=== PATIENT | female | born 1980 | race Caucasian/White ===

== ENCOUNTER → 2019-03-16 | Outpatient (CLI) | payer BC ==
--- NOTE | 2019-03-16 14:36 | MM ---
Reason for exam: screening (asymptomatic). Baseline mammogram. History: Family history of breast cancer in maternal grandmother at age 57, breast cancer in aunt at age 53, and breast cancer in maternal aunt at age 58. Physical Findings: Nurse did not find any significant physical abnormalities on exam. MG 3D Screening Mammo W/Cad Bilateral CC and MLO view(s) were taken. There are scattered fibroglandular densities. Tiny asymmetric stellate density upper left MLO veiw 9cm from nipple. Additional views recommended. These results were verbally communicated with the patient and result sheet given to the patient on 03/16/19. ASSESSMENT: Incomplete: need additional imaging evaluation, BI-RAD 0 RECOMMENDATION: Special view mammogram of the left breast.
--- NOTE | 2019-03-16 14:37 | MM ---
Reason for exam: additional evaluation requested from abnormal screening. History: Family history of breast cancer in maternal grandmother at age 57, breast cancer in aunt at age 53, and breast cancer in maternal aunt at age 58. Physical Findings: Breast exam preformed at baseline screening. MG 3D Work Up W/Cad LT LM and spot compression MLO view(s) were taken of the left breast. There are scattered fibroglandular densities. The previously seen abnormality resolves on additional views and appears as fibroglandular tissue compatible with summation. No suspicious abnormality. These results were verbally communicated with the patient and result sheet given to the patient on 03/16/19. ASSESSMENT: Negative, BI-RAD 1 RECOMMENDATION: Return to routine screening mammogram schedule for both breasts.
== END | disposition home or self-care (01) ==
LOC: RADMAMWWP 12:57
PROVIDERS: ATTEND Pediatrics
DX: Z12.31 Encounter for screening mammogram for malignant neoplasm of breast (principal); R92.8 Other abnormal and inconclusive findings on diagnostic imaging of breast
CPT/HCPCS: 77061; 77063; 77065; 77067

== ENCOUNTER 2019-05-12 09:46 | Inpatient (IN) | payer BC ==
[2019-05-12] MEDS ORDERED: ONDANSETRON 4 MG/2 ML VIAL IVP STA (10:00)
[2019-05-12] MEDS ORDERED: SODIUM CHLORIDE 0.9% 500 ML 500 ML IV STA (10:00)
[2019-05-12] MEDS ORDERED: HYDROmorphone 0.5 MG/0.5 ML SYRINGE IVP STA ×2 (10:01→12:55)
--- NOTE | 2019-05-12 10:05 | ED ---
General Adult HPI - General Chief complaint: Abdominal Pain Stated complaint: abd pain, nausea Time Seen by Provider: 05/12/19 09:50 Source: patient, RN notes reviewed, old records reviewed Mode of arrival: wheelchair Limitations: no limitations - History of Present Illness Initial comments: This is a 38-year-old female who presents emergency Department complaining that she has right upper quadrant epigastric abdominal pain since Thursday. Patient states she went to [facility] on Thursday they did a CAT scan of her abdomen and pelvis showed gallstones and to follow up. Patient states pain is getting worse and she continues to have nausea and vomiting so she decided come to the emergency department. Patient denies any chest pain difficulty breathing shortness of breath. Patient denies any back pain. Patient denies any fever chills or cough. Patient denies any diarrhea. - Related Data Home Medications Medication Instructions Recorded Confirmed HYDROcodone/APAP 5-325MG [[place] 1 tab PO Q6H PRN 05/12/19 05/12/19 5-325] Ondansetron Odt [Zofran Odt] 8 mg PO Q8HR PRN 05/12/19 05/12/19 buPROPion HCL [Wellbutrin SR] 150 mg PO Q12H 05/12/19 05/12/19 Allergies Allergy/AdvReac Type Severity Reaction Status Date / Time No Known Allergies Allergy Verified 05/12/19 10:28 Review of Systems ROS Statement: Those systems with pertinent positive or pertinent negative responses have been documented in the HPI. ROS Other: All systems not noted in ROS Statement are negative. Past Medical History Past Medical History: No Reported History History of Any Multi-Drug Resistant Organisms: None Reported Past Surgical History: Tubal Ligation Past Psychological History: Depression Smoking Status: Former smoker Past Alcohol Use History: None Reported Past Drug Use History: None Reported General Exam - General Exam Comments Initial Comments: GENERAL: Patient is well-developed and well-nourished. Patient is nontoxic and well- hydrated and is in mild distress. ENT: Neck is soft and supple. No significant lymphadenopathy is noted. Oropharynx is clear. Moist mucous membranes. Neck has full range of motion without eliciting any pain. EYES: The sclera were anicteric and conjunctiva were pink and moist. Extraocular movements were intact and pupils were equal round and reactive to light. Eyelids were unremarkable. PULMONARY: Unlabored respirations. Good breath sounds bilaterally. No audible rales rhonchi or wheezing was noted. CARDIOVASCULAR: There is a regular rate and rhythm without any murmurs gallops or rubs. ABDOMEN: Patient has mild right upper quadrant abdominal tenderness SKIN: Skin is clear with no lesions or rashes and otherwise unremarkable. NEUROLOGIC: Patient is alert and oriented x3. Cranial nerves II through XII are grossly intact. Motor and sensory are also intact. Normal speech, volume and content. Symmetrical smile. MUSCULOSKELETAL: Normal extremities with adequate strength and full range of motion. No lower extremity swelling or edema. No calf tenderness. LYMPHATICS: No significant lymphadenopathy is noted PSYCHIATRIC: Normal psychiatric evaluation. Limitations: no limitations Course Vital Signs 05/12/19 09:51 Temperature 97.4 F L Pulse Rate 80 Respiratory 18 Rate Blood Pressure 131/82 O2 Sat by Pulse 98 Oximetry Medical Decision Making - Medical Decision Making Patient's ultrasound showed gallstones. There is no obvious signs of cholecystitis. - Lab Data Result diagrams: 05/12/19 10:20 05/12/19 10:20 Lab Results 05/12/19 05/12/19 05/12/19 Range/Units 10:20 10:20 10:20 WBC 10.9 H (3.8-10.6) k/uL RBC 5.14 (3.80-5.40) m/uL Hgb 15.5 (11.4-16.0) gm/dL Hct 46.1 H (34.0-46.0) % MCV 89.7 (80.0-100.0) fL MCH 30.1 (25.0-35.0) pg MCHC 33.6 (31.0-37.0) g/dL RDW 13.4 (11.5-15.5) % Plt Count 213 (150-450) k/uL Neutrophils % 88 % Lymphocytes % 7 % Monocytes % 2 % Eosinophils % 2 % Basophils % 0 % Neutrophils # 9.5 H (1.3-7.7) k/uL Lymphocytes # 0.8 L (1.0-4.8) k/uL Monocytes # 0.3 (0-1.0) k/uL Eosinophils # 0.2 (0-0.7) k/uL Basophils # 0.0 (0-0.2) k/uL Sodium 138 (137-145) mmol/L Potassium 4.7 (3.5-5.1) mmol/L Chloride 108 H (98-107) mmol/L Carbon Dioxide 17 L (22-30) mmol/L Anion Gap 13 mmol/L BUN 10 (7-17) mg/dL Creatinine 0.66 (0.52-1.04) mg/dL Est GFR (CKD-EPI)AfAm >90 (>60 ml/min/1.73 sqM) Est GFR (CKD-EPI)NonAf >90 (>60 ml/min/1.73 sqM) Glucose 175 H (74-99) mg/dL Calcium 9.2 (8.4-10.2) mg/dL Total Bilirubin 4.1 H (0.2-1.3) mg/dL AST 713 H (14-36) U/L ALT 991 H (4-34) U/L Alkaline Phosphatase 167 H (38-126) U/L Total Protein 8.1 (6.3-8.2) g/dL Albumin 4.5 (3.5-5.0) g/dL Urine Color Dark Yellow Urine Appearance Cloudy H (Clear) Urine pH 5.0 (5.0-8.0) Ur Specific [place] 1.012 (1.001-1.035) Urine Protein 1+ H (Negative) Urine Glucose (UA) Negative (Negative) Urine Ketones 1+ H (Negative) Urine Blood Negative (Negative) Urine Nitrite Negative (Negative) Urine Bilirubin 2+ H (Negative) Urine Urobilinogen 2.0 (<2.0) mg/dL Ur Leukocyte Esterase Negative (Negative) Urine RBC 2 (0-5) /hpf Urine WBC 1 (0-5) /hpf Ur Squamous Epith Cells 3 (0-4) /hpf Urine Bacteria Occasional H (None) /hpf Urine Mucus Rare H (None) /hpf Disposition Clinical Impression: Hepatitis, Abdominal pain Disposition: ADMITTED IP TO THIS HOSP Referrals: Mario Redmond MD [Primary Care Provider] - 1-2 days Time of Disposition: 11:10
[2019-05-12 10:32] LABS: Basophils % (A) 0 %; Eosinophils # (A) 0.2 k/uL (0-0.7); Eosinophils % (A) 2 %; HCT 46.1 % (34.0-46.0); HGB 15.5 gm/dL (11.4-16.0); Lymphocytes # (A) 0.8 k/uL (1.0-4.8); Lymphocytes % (A) 7 %; MCH 30.1 pg (25.0-35.0); MCHC 33.6 g/dL (31.0-37.0); MCV 89.7 fL (80.0-100.0); Mean Platelet Volume 9.4; Monocytes # (A) 0.3 k/uL (0-1.0); Monocytes % (A) 2 %; Neutrophils # (A) 9.5 k/uL (1.3-7.7); Neutrophils % (A) 88 %; Platelet Count 213 k/uL (150-450); RBC 5.14 m/uL (3.80-5.40); RDW 13.4 % (11.5-15.5); WBC 10.9 k/uL (3.8-10.6)
[2019-05-12 10:42] LABS: AST 713 U/L (14-36); African American GFR (CKD) >90 (>60 ml/min/1.73 sqM); Albumin 4.5 g/dL (3.5-5.0); Alkaline Phosphatase 167 U/L (38-126); Anion Gap 13 mmol/L; Blood Urea Nitrogen 10 mg/dL (7-17); Calcium 9.2 mg/dL (8.4-10.2); Carbon Dioxide 17 mmol/L (22-30); Chloride 108 mmol/L (98-107); Glucose 175 mg/dL (74-99); Non-African American GFR(CKD) >90 (>60 ml/min/1.73 sqM); Sodium 138 mmol/L (137-145); Total Bilirubin 4.1 mg/dL (0.2-1.3); Total Protein 8.1 g/dL (6.3-8.2)
[2019-05-12 10:50] LABS: ALT 991 U/L (4-34)
[2019-05-12 10:52] LABS: Appearance,Urine Cloudy (Clear); Bacteria,Urine Occasional /hpf; Bilirubin,Urine 2+ (Negative); Blood,Urine Negative (Negative); Color,Urine Dark Yellow; Glucose,Urine (UA) Negative (Negative); Ketones,Urine 1+ (Negative); Leukocyte Esterase,Urine Negative (Negative); Mucus,Urine Rare /hpf; Nitrite,Urine Negative (Negative); Protein,Urine 1+ (Negative); RBC,Urine 2 /hpf (0-5); Specific Gravity,Urine 1.012 (1.001-1.035); Squamous Epithelial Cell,Urine 3 /hpf (0-4); WBC,Urine 1 /hpf (0-5)
[2019-05-12 10:58] LABS: Potassium 4.7 mmol/L (3.5-5.1)
--- NOTE | 2019-05-12 11:05 | US ---
EXAMINATION TYPE: US gallbladder DATE OF EXAM: 05/12/2019 COMPARISON: NONE CLINICAL HISTORY: Right upper quadrant abdominal pain . Patient is not NPO. RUQ/epigastric pain. EXAM MEASUREMENTS: Liver Length: 18.3 cm Gallbladder Wall: 0.2 cm CBD: 0.6 cm Right Kidney: 10.8 x 4.6 x 3.9 cm Pancreas: Tail obscured by overlying bowel gas. Main pancreatic duct- 1.9 mm. Liver: Increased attenuation, decreased visualization of vessels suggestive of fatty infiltrate. Thi s limits evaluation for hepatic masses. Appears enlarged in size. Appears echogenic and coarse. Gallbladder: Multiple mobile stones, largest - 2.0 x 2.1 cm Evidence for sonographic Grayson's sign: neg CBD: wnl Right Kidney: No hydronephrosis or masses seen IMPRESSION: 1. Cholelithiasis without sonographic evidence of acute cholecystitis. 2. Coarsened echotexture of the liver and hepatomegaly. Findings could be on the basis of hepatocellu lar disease or hepatic steatosis. Correlate with liver function tests.
[2019-05-12] MEDS ORDERED: SODIUM CHLORIDE 0.9% 1,000 ML IV ONE (11:12)
[2019-05-12] MEDS ORDERED: ONDANSETRON 4 MG/2 ML VIAL IVP PRN (11:13)
[2019-05-12 12:17] LABS: Amylase 4835 U/L (30-110)
[2019-05-12] MEDS ORDERED: buPROPion SR 150 MG TABLET.ER PO SCH (13:00)
--- NOTE | 2019-05-12 17:11 | CONS ---
CONSULTATION DATE OF SERVICE: 05/12/2019 REASON FOR CONSULTATION: Acute gallstone pancreatitis. HISTORY OF PRESENT ILLNESS: The patient is a 38-year-old white female who came to the emergency room complaining of severe epigastric and right upper quadrant abdominal pain that started 2 days ago. The pain continued to progressively get worse. She went to the emergency room at [facility] two days ago and she had a CAT scan of the abdomen and pelvis and it showed gallstones and she was advised to follow up with her PCP. In the meantime, the pain continued to progressively get worse and hence came to the emergency room and was noted to have elevated lipase and amylase consistent with acute gallstone pancreatitis. She also noted to elevated LFTs and jaundice. She continues to have persistent pain today, nausea has been intense, but no further episodes of emesis. She denies any fever, chills, or night sweats. She never had these symptoms in the past. PAST MEDICAL HISTORY: Significant for anxiety, depression. MEDICATIONS: At home include Wellbutrin, Zofran. ALLERGIES: CODEINE. SOCIAL HISTORY: No smoking, a former smoker. No alcohol use. PAST SURGICAL HISTORY: Tubal ligation. REVIEW OF SYSTEMS: CARDIOPULMONARY: No chest pain, shortness of breath. GENITOURINARY: No dysuria or hematuria. MUSCULOSKELETAL: Unremarkable. SKIN: Unremarkable. ENDOCRINE: Unremarkable. PSYCHIATRIC: Unremarkable. NEUROLOGY: Unremarkable. ENT/VISION: Unremarkable. CONSTITUTIONAL: No fever, chills, or night sweats. On physical examination, blood pressure is 159/111, temperature 97.9, pulse rate 75. HEENT: Examination unremarkable, conjunctivae are pink, sclerae nonicteric, oral cavity no lesion. NECK: No JVD or lymph node enlargement. CHEST: Clear to auscultation. HEART: Regular rate and rhythm. ABDOMEN: Soft. There was severe tenderness in the epigastric area. Rest of the abdomen was benign. Bowel sounds are positive. No organomegaly. EXTREMITIES: No pedal edema. SKIN: No rashes. NEUROLOGIC: Alert and oriented x3. No focal deficits. LABS: WBC 10.9, hemoglobin 15.5, platelets normal. Basic metabolic panel is within normal limits. BUN and creatinine normal. Amylase 4835, lipase more than 20,000, T-bilirubin 4.1, AST 713, ALT 991, and alkaline phosphatase 169. Ultrasound of the abdomen did show evidence of multiple gallstones but no evidence of biliary ductal dilation. CBD measures 6.3 mm in diameter. Also, there is evidence of mild fatty liver noted. IMPRESSION: This lady presented to the hospital with acute onset of severe epigastric pain associated with nausea, vomiting for the last 2 days duration and noted to have elevated amylase and lipase, elevated LFTs, all consistent with acute gallstone pancreatitis with possible choledocholithiasis. Ultrasound did show evidence of gallstones but no biliary ductal dilation. RECOMMENDATIONS: 1. Aggressive IV hydration. 2. Keep her n.p.o. except ice chips. 3. Antiemetics as needed. 4. Repeat labs in the morning. 5. If serum transaminases and bilirubin continue to increase, will consider ERCP. 6. Obtain surgical consultation for possible cholecystectomy in the near future. 7. Will follow with you closely. Thank you for this consultation. THEEL / IJN: [id number] /
[2019-05-12] MEDS: HYDROmorphone 0.5 MG/0.5 ML SYRINGE IVP PRN ×2 (18:23→22:24)
[2019-05-12] MEDS: ONDANSETRON 4 MG/2 ML VIAL IVP SCH ×2 (18:31→23:30)
[2019-05-12 20:20] LABS: Hepatitis A Antibody IgM Non-Reactive (Non-Reactive); Hepatitis B Core IgM Non-Reactive (Non-Reactive); Hepatitis B Surface Antigen Non-Reactive (Non-Reactive); Hepatitis C IgG Antibody Non-Reactive (Non-Reactive)
[2019-05-12] MEDS: buPROPion SR 150 MG TABLET.ER PO SCH (20:23)
--- NOTE | 2019-05-12 21:59 | P.HPIM ---
History of Present Illness H&P Date: 05/12/19 Chief Complaint: Abdominal pain Patient is a 38-year-old female without significant past medical history came to ER with complaints of abdominal pain mainly in the epigastric and across the upper abdomen and radiating to the back sometimes. Patient has been having pain since last Thursday. Patient initially went to [facility] where she had CT of the abdominal pelvis and was told that she has gallstones and recommended to follow with her PCP and surgery as an outpatient. Patient has been having worsening abdominal pain which made her to come to ER this time. Does have nausea and vomiting at home. No fever no chills. Patient also noticed dark discoloration of her urine. No commerce of chest pain or shortness of breath. Denied any cough or sputum production. No diarrhea. No prior history of gallstones. Denied any recent travel. No sick contacts at home. Denied any unusual food intake. No history of prior hepatitis. Ultrasound of the abdomen showed cholelithiasis without evidence of acute cholecystitis. AST 731, ALT 991, alk phos 167, bilirubin 4.1, amylase 4835 and lipase greater than 30,000 WBC 10.9. UA negative for infection. Hepatitis panel negative. Heterophile antibody negative. Review of Systems Constitutional: Patient denies any fever or chills . No generalized weakness or weight loss. Abdomen: Patient does have nausea vomiting and abdominal pain.. Cardiovascular: Patient denies any chest pain or short of breath no palpitations. Respiratory: patient denied any cough is from production. No shortness of breath Neurologic: Patient denied any numbness or tingling headache. Musculoskeletal: Patient denies any complaints of joint swelling or deformity. Skin: Negative Psychiatric: Negative Endocrine: No heat or cold intolerance. No recent weight gain. Genitourinary: No dysuria or hematuria. All other 14 point ROS negative except the above Past Medical History Past Medical History: Eye Disorder Additional Past Medical History / Comment(s): Bronchitis, hiatal hernia, UTI, starting of cataracts bilaterally History of Any Multi-Drug Resistant Organisms: None Reported Past Surgical History: Section, Tubal Ligation Past Anesthesia/Blood Transfusion Reactions: No Reported Reaction Smoking Status: Former smoker - Past Family History Father Family Medical History: Diabetes Mellitus, Hypertension Mother Family Medical History: Diabetes Mellitus, Hypertension Medications and Allergies Home Medications Medication Instructions Recorded Confirmed Type HYDROcodone/APAP 5-325MG [[place] 1 tab PO Q6H PRN 05/12/19 05/12/19 History 5-325] Ondansetron Odt [Zofran Odt] 8 mg PO Q8HR PRN 05/12/19 05/12/19 History buPROPion HCL [Wellbutrin SR] 150 mg PO Q12H 05/12/19 05/12/19 History Allergies Allergy/AdvReac Type Severity Reaction Status Date / Time No Known Allergies Allergy Verified 05/12/19 10:28 Physical Exam Vitals: Vital Signs Temp Pulse Resp BP Pulse Ox 05/12/19 11:39 97.8 F 81 18 133/91 97 05/12/19 09:51 97.4 F L 80 18 131/82 98 Intake and Output 05/11/19 05/12/19 05/12/19 22:59 06:59 14:59 Other: Weight 117.027 kg PHYSICAL EXAMINATION: Patient is lying in the bed comfortably, no acute distress, awake alert and oriented.. HEENT: Normocephalic. Neck is supple. Pupils reactive. Mild icterus positive. Nostrils clear. Oral cavity is moist. Ears reveal no drainage. Neck reveals no JVD, carotid bruits, or thyromegaly. CHEST EXAMINATION: Trachea is central. Symmetrical expansion. Lung frazier clear to auscultation and percussion. CARDIAC: Normal S1, S2 with no gallops. No murmurs ABDOMEN: Soft. Epigastric tenderness. Bowel sounds normal. No organomegaly. No abdominal bruits. Extremities: reveal no edema. No clubbing or cyanosis Neurologically awake, alert, oriented x3 with well-coordinated movements. No focal deficits noted Skin: No rash or skin lesions. Psychiatric: Coperative. Nonsuicidal Musculoskeletal: No joint swelling or deformity. Normal range of motion. Results CBC & Chem 7: 05/12/19 10:20 05/12/19 10:20 Labs: Abnormal Lab Results - Last 24 Hours (Table) 05/12/19 05/12/19 05/12/19 Range/Units 10:20 10:20 10:20 WBC 10.9 H (3.8-10.6) k/uL Hct 46.1 H (34.0-46.0) % Neutrophils # 9.5 H (1.3-7.7) k/uL Lymphocytes # 0.8 L (1.0-4.8) k/uL Chloride 108 H (98-107) mmol/L Carbon Dioxide 17 L (22-30) mmol/L Glucose 175 H (74-99) mg/dL Total Bilirubin 4.1 H (0.2-1.3) mg/dL AST 713 H (14-36) U/L ALT 991 H (4-34) U/L Alkaline Phosphatase 167 H (38-126) U/L Amylase 4835 H* (30-110) U/L Lipase >61925 H (23-300) U/L Urine Appearance Cloudy H (Clear) Urine Protein 1+ H (Negative) Urine Ketones 1+ H (Negative) Urine Bilirubin 2+ H (Negative) Urine Bacteria Occasional H (None) /hpf Urine Mucus Rare H (None) /hpf Thrombosis Risk Factor Assmnt - DVT/VTE Prophylaxis DVT/VTE Prophylaxis: Pharmacologic Prophylaxis ordered - Choose All That Apply Any of the Below Risk Factors Present?: Yes Each Factor Represents 1 point: Obesity (BMI >25) Other Risk Factors: No Other congenital or acquired thrombophilia - If yes, enter type in comment: No Thrombosis Risk Factor Assessment Total Risk Factor Score: 1 Thrombosis Risk Factor Assessment Level: Low Risk Assessment and Plan Assessment: Acute gallstone pancreatitis possible choledocholithiasis Elevated liver enzymes Hyperbilirubinemia Recent diagnosis of gallstones Hiatal hernia Previous history of smoking DVT prophylaxis Morbid obesity with BMI 42.9 Hepatic steatosis Plan: Patient will be continued on IV hydration and IV pain medications. Nothing by mouth. Follow-up liver enzymes. Gastroenterology is following. Possible ERCP if the enzymes continues to increase. Further recommendations based on the clinical course. Time with Patient: Greater than 30
[2019-05-12] MEDS ORDERED: PANTOPRAZOLE 40 MG/10 ML VIAL IVP SCH (22:00)
[2019-05-12] MEDS: SIMETHICONE 80 MG CHEWABLE PO PRN (22:24)
[2019-05-12] MEDS: SODIUM CHLORIDE 0.9% 1,000 ML IV SCH (22:26)
[2019-05-12] MEDS: MEROPENEM 2 GM in SODIUM CHLORIDE 0.9% 100 ML IVPB SCH (23:30)
[2019-05-13] MEDS: HYDROmorphone 0.5 MG/0.5 ML SYRINGE IVP PRN ×6 (02:26→22:09)
[2019-05-13] MEDS: ONDANSETRON 4 MG/2 ML VIAL IVP SCH ×3 (05:51→18:14)
[2019-05-13] MEDS: SODIUM CHLORIDE 0.9% 1,000 ML IV SCH ×3 (05:51→22:08)
[2019-05-13] MEDS: SIMETHICONE 80 MG CHEWABLE PO PRN ×2 (06:15→14:37)
[2019-05-13 06:49] LABS: Basophils % (A) 0 %; Eosinophils % (A) 0 %; HCT 43.4 % (34.0-46.0); HGB 13.9 gm/dL (11.4-16.0); Lymphocytes # (A) 0.9 k/uL (1.0-4.8); Lymphocytes % (A) 7 %; MCH 29.1 pg (25.0-35.0); MCHC 32.1 g/dL (31.0-37.0); MCV 90.6 fL (80.0-100.0); Mean Platelet Volume 9.5; Monocytes # (A) 0.5 k/uL (0-1.0); Monocytes % (A) 4 %; Neutrophils # (A) 10.9 k/uL (1.3-7.7); Neutrophils % (A) 88 %; Platelet Count 162 k/uL (150-450); RBC 4.79 m/uL (3.80-5.40); RDW 13.6 % (11.5-15.5); WBC 12.3 k/uL (3.8-10.6)
[2019-05-13 06:58] LABS: ALT 601 U/L (4-34); AST 215 U/L (14-36); African American GFR (CKD) >90 (>60 ml/min/1.73 sqM); Albumin 3.6 g/dL (3.5-5.0); Alkaline Phosphatase 135 U/L (38-126); Anion Gap 8 mmol/L; Blood Urea Nitrogen 9 mg/dL (7-17); Carbon Dioxide 22 mmol/L (22-30); Chloride 107 mmol/L (98-107); Glucose 136 mg/dL (74-99); Non-African American GFR(CKD) >90 (>60 ml/min/1.73 sqM); Potassium 3.7 mmol/L (3.5-5.1); Prothrombin Time 10.4 sec (9.0-12.0); Sodium 137 mmol/L (137-145); Total Bilirubin 1.3 mg/dL (0.2-1.3); Total Protein 6.7 g/dL (6.3-8.2)
--- NOTE | 2019-05-13 07:02 | XR ---
EXAMINATION TYPE: XR chest 1V portable DATE OF EXAM: 05/13/2019 COMPARISON: NONE HISTORY: Shortness of breath rule out COVID TECHNIQUE: Single frontal view of the chest is obtained. FINDINGS: There is infrahilar increased density bilaterally right greater than left which may reflect infiltrat e and/or atelectasis. Correlate clinically. The cardiac silhouette size is within normal limits. The osseous structures are intact. IMPRESSION: 1. There is infrahilar increased density bilaterally right greater than left which may reflect infil trate and/or atelectasis. Correlate clinically.
[2019-05-13 07:12] LABS: Amylase 1427 U/L (30-110)
[2019-05-13] MEDS ORDERED: hydrALAZINE HCL 25 MG TAB PO PRN (07:23)
[2019-05-13] MEDS: MEROPENEM 2 GM in SODIUM CHLORIDE 0.9% 100 ML IVPB SCH ×2 (07:47→16:01)
[2019-05-13] MEDS: PANTOPRAZOLE 40 MG/10 ML VIAL IVP SCH ×2 (07:48→20:14)
[2019-05-13] MEDS: buPROPion SR 150 MG TABLET.ER PO SCH ×2 (07:49→20:14)
[2019-05-13] MEDS: HEPARIN SODIUM,PORCINE 5,000 UNIT/ML 1 ML VIAL SQ SCH ×2 (07:50→16:01)
--- NOTE | 2019-05-13 09:03 | P.GSCN ---
History of Present Illness Consult date: 05/13/19 Reason for Consult: Gallstone pancreatitis History of present illness: 38-year-old female came to the hospital with complaints of epigastric pain that began on Thursday. Pain was midepigastric initially but became more diffuse across the upper abdomen. Patient has had nausea and vomiting however the vomiting has improved. No fevers or chills. Did have some slight discoloration of her urine. Did not notice any yellowness to her skin or eyes. Labs suggested pancreatitis with elevated liver enzymes. Ultrasound showed gallstones without biliary dilation. Pain is persisting but slightly improved. GI has already seen this patient. Today's labs have improved nicely from yesterday. Patient denies shortness of breath or cough. Review of Systems The patient denies any acute changes in vision or hearing, no dysphagia or odynophagia, no chest pain or shortness of breath, no dysuria or hematuria, no headache, no runny nose, no rectal bleeding or melena, no unexplained weight loss Past Medical History Past Medical History: Eye Disorder Additional Past Medical History / Comment(s): Bronchitis, hiatal hernia, UTI, starting of cataracts bilaterally History of Any Multi-Drug Resistant Organisms: None Reported Past Surgical History: Section, Tubal Ligation Past Anesthesia/Blood Transfusion Reactions: No Reported Reaction Smoking Status: Former smoker - Past Family History Father Family Medical History: Diabetes Mellitus, Hypertension Mother Family Medical History: Diabetes Mellitus, Hypertension Medications and Allergies Home Medications Medication Instructions Recorded Confirmed Type HYDROcodone/APAP 5-325MG [[place] 1 tab PO Q6H PRN 05/12/19 05/12/19 History 5-325] Ondansetron Odt [Zofran Odt] 8 mg PO Q8HR PRN 05/12/19 05/12/19 History buPROPion HCL [Wellbutrin SR] 150 mg PO Q12H 05/12/19 05/12/19 History Allergies Allergy/AdvReac Type Severity Reaction Status Date / Time No Known Allergies Allergy Verified 05/12/19 10:28 Surgical - Exam Vital Signs Temp Pulse Resp BP Pulse Ox 97.4 F L 80 18 131/82 98 05/12/19 09:51 05/12/19 09:51 05/12/19 09:51 05/12/19 09:51 05/12/19 09:51 Physical exam: General: Well-developed, well-nourished HEENT: Normocephalic, sclerae nonicteric Abdomen: Epigastric tenderness, nondistended Extremities: No edema Neuro: Alert and oriented Results - Labs 05/13/19 06:16 05/13/19 06:16 Abnormal Lab Results - Last 24 Hours (Table) 05/12/19 05/12/19 05/12/19 Range/Units 10:20 10:20 10:20 WBC 10.9 H (3.8-10.6) k/uL Hct 46.1 H (34.0-46.0) % Neutrophils # 9.5 H (1.3-7.7) k/uL Lymphocytes # 0.8 L (1.0-4.8) k/uL Chloride 108 H (98-107) mmol/L Carbon Dioxide 17 L (22-30) mmol/L Glucose 175 H (74-99) mg/dL Calcium (8.4-10.2) mg/dL Total Bilirubin 4.1 H (0.2-1.3) mg/dL AST 713 H (14-36) U/L ALT 991 H (4-34) U/L Alkaline Phosphatase 167 H (38-126) U/L Amylase 4835 H* (30-110) U/L Lipase >66706 H (23-300) U/L Urine Appearance Cloudy H (Clear) Urine Protein 1+ H (Negative) Urine Ketones 1+ H (Negative) Urine Bilirubin 2+ H (Negative) Urine Bacteria Occasional H (None) /hpf Urine Mucus Rare H (None) /hpf 05/13/19 05/13/19 Range/Units 06:16 06:16 WBC 12.3 H (3.8-10.6) k/uL Hct (34.0-46.0) % Neutrophils # 10.9 H (1.3-7.7) k/uL Lymphocytes # 0.9 L (1.0-4.8) k/uL Chloride (98-107) mmol/L Carbon Dioxide (22-30) mmol/L Glucose 136 H (74-99) mg/dL Calcium 8.0 L (8.4-10.2) mg/dL Total Bilirubin (0.2-1.3) mg/dL AST 215 H (14-36) U/L ALT 601 H (4-34) U/L Alkaline Phosphatase 135 H (38-126) U/L Amylase 1427 H* (30-110) U/L Lipase 7716 H (23-300) U/L Urine Appearance (Clear) Urine Protein (Negative) Urine Ketones (Negative) Urine Bilirubin (Negative) Urine Bacteria (None) /hpf Urine Mucus (None) /hpf Diabetes panel 05/12/19 05/13/19 Range/Units 10:20 06:16 Sodium 138 137 (137-145) mmol/L Potassium 4.7 3.7 (3.5-5.1) mmol/L Chloride 108 H 107 (98-107) mmol/L Carbon Dioxide 17 L 22 (22-30) mmol/L BUN 10 9 (7-17) mg/dL Creatinine 0.66 0.66 (0.52-1.04) mg/dL Glucose 175 H 136 H (74-99) mg/dL Calcium 9.2 8.0 L (8.4-10.2) mg/dL AST 713 H 215 H (14-36) U/L ALT 991 H 601 H (4-34) U/L Alkaline Phosphatase 167 H 135 H (38-126) U/L Total Protein 8.1 6.7 (6.3-8.2) g/dL Albumin 4.5 3.6 (3.5-5.0) g/dL Calcium panel 05/12/19 05/13/19 Range/Units 10:20 06:16 Calcium 9.2 8.0 L (8.4-10.2) mg/dL Albumin 4.5 3.6 (3.5-5.0) g/dL Pituitary panel 05/12/19 05/13/19 Range/Units 10:20 06:16 Sodium 138 137 (137-145) mmol/L Potassium 4.7 3.7 (3.5-5.1) mmol/L Chloride 108 H 107 (98-107) mmol/L Carbon Dioxide 17 L 22 (22-30) mmol/L BUN 10 9 (7-17) mg/dL Creatinine 0.66 0.66 (0.52-1.04) mg/dL Glucose 175 H 136 H (74-99) mg/dL Calcium 9.2 8.0 L (8.4-10.2) mg/dL Adrenal panel 05/12/19 05/13/19 Range/Units 10:20 06:16 Sodium 138 137 (137-145) mmol/L Potassium 4.7 3.7 (3.5-5.1) mmol/L Chloride 108 H 107 (98-107) mmol/L Carbon Dioxide 17 L 22 (22-30) mmol/L BUN 10 9 (7-17) mg/dL Creatinine 0.66 0.66 (0.52-1.04) mg/dL Glucose 175 H 136 H (74-99) mg/dL Calcium 9.2 8.0 L (8.4-10.2) mg/dL Total Bilirubin 4.1 H 1.3 (0.2-1.3) mg/dL AST 713 H 215 H (14-36) U/L ALT 991 H 601 H (4-34) U/L Alkaline Phosphatase 167 H 135 H (38-126) U/L Total Protein 8.1 6.7 (6.3-8.2) g/dL Albumin 4.5 3.6 (3.5-5.0) g/dL Assessment and Plan (1) Gallstone pancreatitis Narrative/Plan: 38-year-old female with history exam and diagnostic studies consistent with acute gallstone pancreatitis. Continue empiric antibiotics. Recheck labs tomorrow. Tentatively plan laparoscopic cholecystectomy, possible open cholecystectomy on 05/14 if the patient's labs continue to demonstrate i mprovement. Risks of bleeding, infection, bile leak, bile duct injury, retained common bile duct stone, trocar injury, conversion to an open procedure, hernia, anesthesia related complications were reviewed. The patient understands and wishes to proceed. Current Visit: Yes Status: Acute Code(s): K85.10 - BILIARY ACUTE PANCREATITIS WITHOUT NECROSIS OR INFECTION SNOMED Code(s): 06216809
[2019-05-13 09:39] VITALS: BMI 42.9
--- NOTE | 2019-05-13 11:16 | PN ---
PROGRESS NOTE DATE OF SERVICE: 05/13/2019 Patient is a 38-year-old pleasant white female admitted to hospital with acute gallstone pancreatitis. She presents with severe epigastric pain and nausea, vomiting. She is feeling better today. Still has persistent epigastric pain, requiring Dilaudid every 3 hours. The nausea has resolved. No diarrhea. No fever, chills, or night sweats. PHYSICAL EXAMINATION: Appears comfortable. Blood pressure is 130/75, pulse rate 95, temperature 99. HEENT: Examination unremarkable, conjunctivae are pink, sclerae nonicteric, oral cavity no lesions. NECK: No JVD or lymph node enlargement. CHEST: Clear to auscultation. HEART: Regular rate and rhythm. ABDOMEN: Soft, there was tenderness in the epigastric area but no rebound or rigidity. Bowel sounds are positive. No organomegaly. EXTREMITIES: No pedal edema. SKIN: No rashes. NEUROLOGIC: Alert and oriented x3. No focal deficits. LABS: From today, WBC 12.3, hemoglobin 13.9, platelets normal. Basic metabolic panel is within normal limits. BUN and creatinine normal. T-bilirubin is down to 1.3 from 4.1 yesterday. AST is down to 160, ALT is down to 601, alkaline phosphatase 135, amylase is 1427, lipase is down to 7716. Hepatitis serologies for A, B and C are negative. IMPRESSION: Acute gallstone pancreatitis with elevated LFTs and jaundice, gradually improving. Symptoms are improving, biochemical parameatal is improving. Bilirubin has decreased from 4.1 to 1.3, making it likely that she has already passed the CBD stone spontaneously. RECOMMENDATIONS: 1. Continue with symptomatic and supportive care. 2. Pain medications as needed. 3. Antiemetics as needed. 4. Okay for ice chips and water. 5. Repeat labs in the morning. 6. If they continue to improve, she will not need an ERCP. Will follow with you closely. Thank you for this consultation. MMODL / IJN: [id number] /
--- NOTE | 2019-05-13 14:54 | P.PN ---
Subjective Progress Note Date: 05/13/19 Principal diagnosis: Patient is a 38-year-old female without significant past medical history came to ER with complaints of abdominal pain mainly in the epigastric and across the u pper abdomen and radiating to the back sometimes. Patient has been having pain since last Thursday. Patient initially went to [facility] where she had CT of the abdominal pelvis and was told that she has gallstones and recommended to follow with her PCP and surgery as an outpatient. Patient has been having worsening abdominal pain which made her to come to ER this time. Does have nausea and vomiting at home. No fever no chills. Patient also noticed dark discoloration of her urine. No commerce of chest pain or shortness of breath. Denied any cough or sputum production. No diarrhea. No prior history of gallstones. Denied any recent travel. No sick contacts at home. Denied any unusual food intake. No history of prior hepatitis. Ultrasound of the abdomen showed cholelithiasis without evidence of acute cholecystitis. 05/13/2019 Patient is seen and evaluated in follow-up today stating she was having some shortness of breath when she was experiencing extreme amounts of pain and a chest x-ray was done showing possible infiltrate and/or atelectasis. Patient states that has resolved now. No reports of chest pain or palpitations. Patient is afebrile. No reports of nausea or vomiting and patient has been advanced to ice chip with small sips of water. Surgery and GI following. Amylase and lipase trending down. Amylase is now 1427 and lipase is 7716. Patient was seen and evaluated by Dr. Walters today and patient may possibly undergo cholecystectomy in the near future. Will continue to monitor closely. Objective - Vital Signs Vital signs: Vital Signs Temp 99.0 F 05/13/19 04:52 Pulse 95 05/13/19 04:52 Resp 20 05/13/19 04:52 BP 113/75 05/13/19 04:52 Pulse Ox 95 05/13/19 04:52 Intake & Output 05/12/19 05/13/19 05/13/19 18:59 06:59 18:59 Intake Total 0 Balance 0 Weight 117.027 kg 117.027 kg Intake: Oral 0 Other: Voiding Method Toilet Toilet Toilet # Voids 1 3 1 - Exam Patient is lying in the bed comfortably, no acute distress, awake alert and oriented.. HEENT: Normocephalic. Neck is supple. Pupils reactive. Mild icterus positive. Nostrils clear. Oral cavity is moist. Ears reveal no drainage. Neck reveals no JVD, carotid bruits, or thyromegaly. CHEST EXAMINATION: Trachea is central. Symmetrical expansion. Lung frazier clear to auscultation and percussion. CARDIAC: Normal S1, S2 with no gallops. No murmurs ABDOMEN: Soft. Epigastric tenderness. Bowel sounds normal. No organomegaly. No abdominal bruits. Extremities: reveal no edema. No clubbing or cyanosis Neurologically awake, alert, oriented x3 with well-coordinated movements. No focal deficits noted Skin: No rash or skin lesions. Psychiatric: Cooperative. Non-suicidal Musculoskeletal: No joint swelling or deformity. Normal range of motion. - Labs CBC & Chem 7: 05/13/19 06:16 05/13/19 06:16 Labs: Abnormal Lab Results - Last 24 Hours (Table) 05/12/19 05/13/19 05/13/19 Range/Units 10:20 06:16 06:16 WBC 12.3 H (3.8-10.6) k/uL Neutrophils # 10.9 H (1.3-7.7) k/uL Lymphocytes # 0.9 L (1.0-4.8) k/uL Glucose 136 H (74-99) mg/dL Calcium 8.0 L (8.4-10.2) mg/dL AST 215 H (14-36) U/L ALT 601 H (4-34) U/L Alkaline Phosphatase 135 H (38-126) U/L Amylase 4835 H* 1427 H* (30-110) U/L Lipase >24313 H 7716 H (23-300) U/L Assessment and Plan Assessment: Acute gallstone pancreatitis possible choledocholithiasis Elevated liver enzymes Hyperbilirubinemia Recent diagnosis of gallstones Hiatal hernia Previous history of smoking DVT prophylaxis Morbid obesity with BMI 42.9 Hepatic steatosis Plan: Patient will be continued on IV hydration and IV pain medications. Diet has been advanced to ice chips and sips of water. Liver enzymes trending down along with lipase and amylase. Gastroenterology is following. Surgery evaluated the patient and patient may undergo cholecystectomy in the near future. Further recommendations based on the clinical course.
[2019-05-14] MEDS: MEROPENEM 2 GM in SODIUM CHLORIDE 0.9% 100 ML IVPB SCH ×4 (00:44→23:20)
[2019-05-14] MEDS: ONDANSETRON 4 MG/2 ML VIAL IVP SCH ×4 (00:44→17:15)
[2019-05-14] MEDS: HEPARIN SODIUM,PORCINE 5,000 UNIT/ML 1 ML VIAL SQ SCH ×3 (00:44→15:37)
[2019-05-14] MEDS: HYDROmorphone 0.5 MG/0.5 ML SYRINGE IVP PRN ×6 (02:01→23:01)
[2019-05-14] MEDS: SODIUM CHLORIDE 0.9% 1,000 ML IV SCH ×3 (05:44→21:40)
[2019-05-14] MEDS: PANTOPRAZOLE 40 MG/10 ML VIAL IVP SCH ×2 (07:56→21:34)
[2019-05-14] MEDS: buPROPion SR 150 MG TABLET.ER PO SCH ×2 (07:57→21:26)
[2019-05-14 08:41] LABS: ALT 280 U/L (4-34); AST 64 U/L (14-36); African American GFR (CKD) >90 (>60 ml/min/1.73 sqM); Albumin 2.8 g/dL (3.5-5.0); Alkaline Phosphatase 87 U/L (38-126); Anion Gap 9 mmol/L; Blood Urea Nitrogen 6 mg/dL (7-17); Carbon Dioxide 19 mmol/L (22-30); Chloride 106 mmol/L (98-107); Glucose 110 mg/dL (74-99); Non-African American GFR(CKD) >90 (>60 ml/min/1.73 sqM); Potassium 3.4 mmol/L (3.5-5.1); Sodium 134 mmol/L (137-145); Total Bilirubin 0.9 mg/dL (0.2-1.3); Total Protein 5.6 g/dL (6.3-8.2)
[2019-05-14 13:19] LABS: Amylase 346 U/L (30-110)
[2019-05-14] MEDS ORDERED: Potassium Replacement Protocol 1 EACH MISC MISCELLANE PRN (13:34)
--- NOTE | 2019-05-14 13:35 | PN ---
PROGRESS NOTE DATE OF DICTATION: 05/14/2019 The patient is a 38-year-old pleasant white female admitted to the hospital with acute gallstone pancreatitis. She is feeling much better today. She has some epigastric discomfort. Overall she is doing well. Nausea and vomiting have resolved. PHYSICAL EXAMINATION: Vital signs are stable. Blood pressure 124/74, pulse rate 98, temperature 98.2. HEENT examination unremarkable. Conjunctivae pink. Sclerae anicteric. Oral cavity no lesions. NECK: No JVD or lymph node enlargement. CHEST: Clear to auscultation. HEART: Regular rate and rhythm. ABDOMEN: Soft. Mild tenderness in the epigastric area. Rest of the abdomen was benign. Bowel sounds are positive. No organomegaly. EXTREMITIES: No pedal edema. SKIN: No rashes. NEUROLOGIC: Alert and oriented x3. No focal deficits. LABS: Labs from today: amylase and lipase are pending. T-bilirubin is down to 0.9. AST and ALT are 64 and 280, respectively. CBC not available. IMPRESSION: Acute gallstone pancreatitis with significantly improving labs. Bilirubin has normalized. Serum transaminases are significantly improved, making it likely that she had spontaneously passed the CBD stone. Overall she is doing well. RECOMMENDATIONS: 1. Continue with pain medications as needed. 2. Will start her on a clear liquid diet. 3. Repeat labs in the morning. 4. No need for any endoscopic intervention at the present time, since her serum transaminases have significantly improved. 5. Will follow with you closely. Thank you for this consultation. CHELSEY / JIN: [id number] /
--- NOTE | 2019-05-14 13:36 | P.PN ---
Subjective Progress Note Date: 05/14/19 CHIEF COMPLAINT: Gallstone pancreatitis HISTORY OF PRESENT ILLNESS: The patient is a 38-year-old female admitted secondary to symptomatic cholelithiasis with gallstone pancreatitis. Lipase on admission was over 20,000. Amylase was over 4800. Total bilirubin was 4.1. She reports generalized ache of the epigastrium. She complains of constipation. She is tolerating ice chips. ROS: No reports of nausea and vomiting. No bowel movements. No fevers or chills. No new chest pain. No productive sputum PHYSICAL EXAM: VITAL SIGNS: Reviewed CONSTITUTIONAL: Well developed and in no acute distress. EYES: Conjuctivae without sclera icterus. Extraocular movements grossly intact. HEAD, EARS, NOSE, THROAT: Moist buccal mucosa. Head is atraumatic, normocephalic. Hears conversational speech. No nasal drainage. NECK: Supple. No thyroidomegaly. RESPIRATORY: Non-labored respirations and equal bilateral excursions. CARDIOVASCULAR: Palpable 2+ radial pulses. Regular rate. Regular rhythm. ABDOMEN: No peritonitis. Protuberant. MUSCULOSKELETAL: No gross deformity of the lower extremities noted. No clubbing. No cyanosis. SKIN: Good skin turgor. Well perfused. NEUROLOGIC: Cranial nerves I through XII grossly intact. No focal or lateralizing signs. PSYCH: Appropriate affect. Alert and oriented to person, place and time. CLINICAL LABS: White blood cell count elevated 12,300. AST improved from 713 down to 64. ALT improved from 991 down to 280. Alkaline phosphatase down from 187 down to 87. Bilirubin is down from 4.1-0.9 STUDIES: Ultrasound of the gallbladder independently reviewed demonstrate gallbladder wall less than 2 mm. Large gallstones identified. It is my per gladys interpretation. RADIOLOGY: Ultrasound of the gallbladder report confirms common bile duct within normal limits 0.6 mm ASSESSMENT: 1. Gallstone pancreatitis 2. Morbid obesity, BMI 42.9 PLAN: 1. Monitor LFTs 2. Recommend inpatient cholecystectomy as liver enzymes and pancreatic enzymes improve Objective - Vital Signs Vital signs: Vital Signs Temp 98.2 F 05/14/19 06:07 Pulse 99 05/14/19 08:13 Resp 18 05/14/19 08:13 BP 127/74 05/14/19 08:13 Pulse Ox 97 05/14/19 06:07 Intake & Output 04/04/2805/14/19 05/14/19 18:59 06:59 18:59 Weight 117.027 kg Other: Voiding Method Toilet Toilet # Voids 1 2 # Bowel Movements 0 - Labs CBC & Chem 7: 05/13/19 06:16 05/14/19 07:42 Labs: Abnormal Lab Results - Last 24 Hours (Table) 05/14/19 Range/Units 07:42 Sodium 134 L (137-145) mmol/L Potassium 3.4 L (3.5-5.1) mmol/L Carbon Dioxide 19 L (22-30) mmol/L BUN 6 L (7-17) mg/dL Glucose 110 H (74-99) mg/dL Calcium 7.0 L (8.4-10.2) mg/dL AST 64 H (14-36) U/L ALT 280 H (4-34) U/L Total Protein 5.6 L (6.3-8.2) g/dL Albumin 2.8 L (3.5-5.0) g/dL
[2019-05-14] MEDS: POTASSIUM CHLORIDE ER 20 MEQ TAB.ER PO SCH ×2 (14:10→15:37)
[2019-05-14] MEDS ORDERED: ACETAMINOPHEN TAB 325 MG TAB PO STA (23:17)
--- NOTE | 2019-05-14 23:32 | P.PN ---
Subjective Progress Note Date: 05/14/19 Principal diagnosis: Acute gallstone pancreatitis Patient is a 38-year-old female without significant past medical history came to ER with complaints of abdominal pain mainly in the epigastric and across the upper abdomen and radiating to the back sometimes. Patient has been having pain since last Thursday. Patient initially went to [facility] where she had CT of the abdominal pelvis and was told that she has gallstones and recommended to follow with her PCP and surgery as an outpatient. Patient has been having worsening abdominal pain which made her to come to ER this time. Does have nausea and vomiting at home. No fever no chills. Patient also noticed dark discoloration of her urine. No commerce of chest pain or shortness of breath. Denied any cough or sputum production. No diarrhea. No prior history of gallstones. Denied any recent travel. No sick contacts at home. Denied any unusual food intake. No history of prior hepatitis. Ultrasound of the abdomen showed cholelithiasis without evidence of acute cholecystitis. 05/13/2019 Patient is seen and evaluated in follow-up today stating she was having some shortness of breath when she was experiencing extreme amounts of pain and a chest x-ray was done showing possible infiltrate and/or atelectasis. Patient states that has resolved now. No reports of chest pain or palpitations. Patient is afebrile. No reports of nausea or vomiting and patient has been advanced to ice chip with small sips of water. Surgery and GI following. Amylase and lipase trending down. Amylase is now 1427 and lipase is 7716. Patient was seen and evaluated by Dr. Walters today and patient may possibly under go cholecystectomy in the near future. Will continue to monitor closely. 05/14/2019 Patient is currently lying in the bed comfortably. Abdominal pain did improve. No complaints of fever or chills. LFTs and amylase, lipase levels are much improved. Gastroenterology is following. General surgery is planning for cholecystectomy tomorrow. Patient has been afebrile. No nausea or vomiting. No diarrhea. No chest pain or shortness of breath. Current medications reviewed. Objective - Vital Signs Vital signs: Vital Signs Temp 100.4 F H 05/14/19 21:20 Pulse 95 05/14/19 21:20 Resp 17 05/14/19 21:20 BP 141/74 05/14/19 21:20 Pulse Ox 98 04/04/20 21:20 Intake & Output 05/14/19 05/14/19 05/15/19 06:59 18:59 06:59 Intake Total 240 Balance 240 Intake: Oral 240 Other: Voiding Method Toilet # Voids 2 3 1 # Bowel Movements 0 0 - Exam Patient is lying in the bed comfortably, no acute distress, awake alert and oriented.. HEENT: Normocephalic. Neck is supple. Pupils reactive. Mild icterus positive. Nostrils clear. Oral cavity is moist. Ears reveal no drainage. Neck reveals no JVD, carotid bruits, or thyromegaly. CHEST EXAMINATION: Trachea is central. Symmetrical expansion. Lung frazier clear to auscultation and percussion. CARDIAC: Normal S1, S2 with no gallops. No murmurs ABDOMEN: Soft. Epigastric tenderness. Bowel sounds normal. No organomegaly. No abdominal bruits. Extremities: reveal no edema. No clubbing or cyanosis Neurologically awake, alert, oriented x3 with well-coordinated movements. No focal deficits noted Skin: No rash or skin lesions. Psychiatric: Cooperative. Non-suicidal Musculoskeletal: No joint swelling or deformity. Normal range of motion. - Labs CBC & Chem 7: 05/13/19 06:16 05/14/19 07:42 Labs: Abnormal Lab Results - Last 24 Hours (Table) 05/14/19 05/14/19 Range/Units 07:42 07:42 Sodium 134 L (137-145) mmol/L Potassium 3.4 L (3.5-5.1) mmol/L Carbon Dioxide 19 L (22-30) mmol/L BUN 6 L (7-17) mg/dL Glucose 110 H (74-99) mg/dL Calcium 7.0 L (8.4-10.2) mg/dL AST 64 H (14-36) U/L ALT 280 H (4-34) U/L Total Protein 5.6 L (6.3-8.2) g/dL Albumin 2.8 L (3.5-5.0) g/dL Amylase 346 H* (30-110) U/L Lipase 1192 H (23-300) U/L Assessment and Plan Assessment: Acute gallstone pancreatitis possible choledocholithiasis with passage of stone Elevated liver enzymes Hyperbilirubinemia Recent diagnosis of gallstones Hiatal hernia Previous history of smoking DVT prophylaxis Morbid obesity with BMI 42.9 Hepatic steatosis Plan: Patient will be continued on IV hydration and IV pain medications. Currently on liquid diet. Follow-up liver enzymes. Gastroenterology and general surgery is following. Possible ERCP if the enzymes continues to increase. Liver enzymes and amylase, lipase are trending down. General surgery is planning for cholecystectomy tomorrow. Nothing by mouth up to midnight. Further recommendations based on the clinical course. Time with Patient: Greater than 30
[2019-05-15] MEDS: HEPARIN SODIUM,PORCINE 5,000 UNIT/ML 1 ML VIAL SQ SCH ×4 (00:36→23:09)
[2019-05-15] MEDS: ONDANSETRON 4 MG/2 ML VIAL IVP SCH ×6 (00:36→23:08)
[2019-05-15] MEDS: HYDROmorphone 0.5 MG/0.5 ML SYRINGE IVP PRN ×3 (04:32→20:50)
[2019-05-15] MEDS: SODIUM CHLORIDE 0.9% 1,000 ML IV SCH ×3 (06:13→19:17)
[2019-05-15] MEDS ORDERED: HYDROmorphone 0.5 MG/0.5 ML SYRINGE IVP PRN (07:31)
[2019-05-15] MEDS ORDERED: ROCURONIUM BROMIDE 10 MG/ML 5 ML VIAL IV ONE (07:52)
[2019-05-15] MEDS ORDERED: PROPOFOL 10 MG/ML 20 ML VIAL IV ONE (07:52)
[2019-05-15] MEDS ORDERED: BUPIVACAIN-EPI 0.25%-1:200,000 30 ML VIAL SQ ONE (07:52)
[2019-05-15] MEDS ORDERED: KETOROLAC 30 MG/ML 1 ML VIAL ONE (07:52)
[2019-05-15] MEDS ORDERED: LIDOCAINE 1% INJ 10MG/ML (20 ML MDV) ONE (07:52)
[2019-05-15] MEDS ORDERED: MIDAZOLAM 2 MG/2 ML VIAL ONE (07:52)
[2019-05-15] MEDS ORDERED: SODIUM CHLORIDE 0.9% 1,000 ML IV ONE (07:52)
[2019-05-15] MEDS ORDERED: fentaNYL (PF) 50 MCG/ML 2 ML AMP ONE (07:52)
[2019-05-15] MEDS ORDERED: HYDROmorphone (PF) 1 MG/ML ONE (07:52)
--- NOTE | 2019-05-15 07:54 | P.PN ---
Progress Note - Text Progress Note Date: 05/15/19 Patient seen today in preop. Yesterday's labs continued to demonstrate improvement and suggest the likely passage of the suspected CBD Stone. Patient's pain has been gradually improving. She is afebrile. She is feeling well enough to go home in the near future she states. She has been tolerating her liquid diet. Plan remains to proceed with laparoscopic, possible open cholecystectomy at this time. Possible discharge later today or tomorrow based on her postoperative symptoms. Risks of bleeding, infection, bile leak, bile duct injury, retained common bile duct stone, trocar injury, conversion to an open procedure, hernia, anesthesia related complications were reviewed. The patient understands and wishes to proceed.
[2019-05-15 08:15] LABS: HGB 11.8 gm/dL (11.4-16.0); MCH 29.5 pg (25.0-35.0); MCHC 32.6 g/dL (31.0-37.0); MCV 90.5 fL (80.0-100.0); Mean Platelet Volume 10.2; Platelet Count 116 k/uL (150-450); RBC 3.98 m/uL (3.80-5.40); RDW 13.5 % (11.5-15.5); WBC 13.5 k/uL (3.8-10.6)
[2019-05-15 08:25] LABS: ALT 175 U/L (4-34); AST 35 U/L (14-36); African American GFR (CKD) >90 (>60 ml/min/1.73 sqM); Albumin 2.8 g/dL (3.5-5.0); Alkaline Phosphatase 85 U/L (38-126); Amylase 132 U/L (30-110); Anion Gap 7 mmol/L; Blood Urea Nitrogen 5 mg/dL (7-17); Calcium 7.4 mg/dL (8.4-10.2); Carbon Dioxide 23 mmol/L (22-30); Chloride 105 mmol/L (98-107); Glucose 109 mg/dL (74-99); Non-African American GFR(CKD) >90 (>60 ml/min/1.73 sqM); Potassium 3.4 mmol/L (3.5-5.1); Sodium 135 mmol/L (137-145); Total Bilirubin 0.8 mg/dL (0.2-1.3); Total Protein 5.6 g/dL (6.3-8.2)
--- NOTE | 2019-05-15 09:16 | P.OP ---
Date of Procedure: 05/15/19 Procedure(s) Performed: PREOPERATIVE DIAGNOSIS: Gallstone pancreatitis with acute cholecystitis POSTOPERATIVE DIAGNOSIS: Same PROCEDURE: Laparoscopic cholecystectomy SURGEON: Romeo EBL: Minimal see anesthesia record ANESTHESIA: Gen. COMPLICATIONS: None OPERATIVE PROCEDURE: The patient was brought and placed on the operating room table in the supine position. The patient was placed under general anesthesia at that time. The abdomen was prepped and draped in the usual sterile fashion. A small vertical infraumbilical incision was made. The fascia was grasped with the Kieran forceps. The fascia was retracted anteriorly. The Veress needle was advanced into the peritoneal cavity. The saline drop test was normal. Insufflation took place up to 15 mmHg. A 5 mm optical trocar was advanced and the peritoneal cavity. 2 additional 5 mm trochars were placed in the right upper quadrant under direct visualization. A 12 mm trocar was advanced into the epigastric incision site. The gallbladder was acutely inflamed with edema involving the wall of the gallbladder. There were no overt signs of panc reatitis seen intraperitoneally. The gallbladder was retracted superiorly and laterally. The peritoneum overlying the infundibulum was bluntly dissected. The patient's cystic duct was visualized. The junction between the cystic duct common and hepatic duct was identified. The cystic duct was then divided after placement of 3 12 mm clips on the patient's side and one on the specimen side. The cystic artery was identified and clipped as well. A small vessel was seen along the gallbladder fossa and clipped as well. Insufflation was evacuated using the suction device. The gallbladder was then removed from the liver bed using electrocautery. The gallbladder was then removed from the epigastric trocar site with an Endo Catch bag. The gallbladder fossa was irrigated with saline. There was no evidence of any bleeding or biliary drainage seen. The fascia at the 12 millimeter site was closed using a Gordon-Tristian 0 Vicryl stitch. The trochars were then removed. The skin at all 4 sites was closed using a 4-0 Monocryl stitch. Skin glue was utilized on the incision sites. At the end of this procedure the sponge and needle counts were correct. DISPOSITION: Stable to the recovery room
[2019-05-15] MEDS ORDERED: Potassium Replacement Protocol 1 EACH MISC MISCELLANE PRN (10:40)
[2019-05-15] MEDS: LACTATED RINGERS 1,000 ML IV SCH (10:43)
[2019-05-15] MEDS: PANTOPRAZOLE 40 MG/10 ML VIAL IVP SCH ×2 (10:43→20:44)
[2019-05-15] MEDS: MEROPENEM 2 GM in SODIUM CHLORIDE 0.9% 100 ML IVPB SCH ×3 (10:43→23:08)
[2019-05-15] MEDS: buPROPion SR 150 MG TABLET.ER PO SCH ×2 (10:48→20:43)
[2019-05-15] MEDS: POTASSIUM CHLORIDE ER 20 MEQ TAB.ER PO SCH ×2 (10:48→12:08)
[2019-05-15] MEDS: HYDROcodone/APAP 5-325MG 1 EACH TAB PO PRN (16:08)
[2019-05-16] MEDS: HYDROcodone/APAP 5-325MG 1 EACH TAB PO PRN ×2 (00:32→11:14)
--- NOTE | 2019-05-16 00:51 | P.PN ---
Subjective Progress Note Date: 05/15/19 Principal diagnosis: Acute gallstone pancreatitis Patient is a 38-year-old female without significant past medical history came to ER with complaints of abdominal pain mainly in the epigastric and across the upper abdomen and radiating to the back sometimes. Patient has been having pain since last Thursday. Patient initially went to [facility] where she had CT of the abdominal pelvis and was told that she has gallstones and recommended to follow with her PCP and surgery as an outpatient. Patient has been having worsening abdominal pain which made her to come to ER this time. Does have nausea and vomiting at home. No fever no chills. Patient also noticed dark discoloration of her urine. No commerce of chest pain or shortness of breath. Denied any cough or sputum production. No diarrhea. No prior history of gallstones. Denied any recent travel. No sick contacts at home. Denied any unusual food intake. No history of prior hepatitis. Ultrasound of the abdomen showed cholelithiasis without evidence of acute cholecystitis. 05/13/2019 Patient is seen and evaluated in follow-up today stating she was having some shortness of breath when she was experiencing extreme amounts of pain and a chest x-ray was done showing possible infiltrate and/or atelectasis. Patient states that has resolved now. No reports of chest pain or palpitations. Patient is afebrile. No reports of nausea or vomiting and patient has been advanced to ice chip with small sips of water. Surgery and GI following. Amylase and lipase trending down. Amylase is now 1427 and lipase is 7716. Patient was seen and evaluated by Dr. Walters today and patient may possibly under go cholecystectomy in the near future. Will continue to monitor closely. 05/14/2019 Patient is currently lying in the bed comfortably. Abdominal pain did improve. No complaints of fever or chills. LFTs and amylase, lipase levels are much improved. Gastroenterology is following. General surgery is planning for cholecystectomy tomorrow. Patient has been afebrile. No nausea or vomiting. No diarrhea. No chest pain or shortness of breath. 05/15/2019 Patient is status post laparoscopic cholecystectomy today. Currently denied any complaints of pain. Liver enzymes and amylase lipase much improved from yesterday. Otherwise patient was started on clear liquid diet and advance as tolerated. Pain medications changed to by mouth. Patient has been afebrile otherwise. WBC 13.5. Anticipate discharge in next 24 hours with more clinical improvement. Current medications reviewed. Objective - Vital Signs Vital signs: Vital Signs Temp 100.8 F H 05/15/19 19:50 Pulse 103 H 05/15/19 19:50 Resp 24 05/15/19 19:50 BP 119/72 05/15/19 19:50 Pulse Ox 99 05/15/19 19:50 Intake & Output 05/15/19 05/15/19 05/16/19 06:59 18:59 06:59 Intake Total 1000 Output Total 5 Balance 995 Intake: IV 1000 Output: Estimated Blood Loss 5 Other: Voiding Method Toilet Toilet # Voids 1 3 1 # Bowel Movements 0 - Exam Patient is lying in the bed comfortably, no acute distress, awake alert and oriented.. HEENT: Normocephalic. Neck is supple. Pupils reactive. Mild icterus positive. Nostrils clear. Oral cavity is moist. Ears reveal no drainage. Neck reveals no JVD, carotid bruits, or thyromegaly. CHEST EXAMINATION: Trachea is central. Symmetrical expansion. Lung frazier clear to auscultation and percussion. CARDIAC: Normal S1, S2 with no gallops. No murmurs ABDOMEN: Soft. Nontender. Bowel sounds normal. No organomegaly. No abdominal bruits. Extremities: reveal no edema. No clubbing or cyanosis Neurologically awake, alert, oriented x3 with well-coordinated movements. No focal deficits noted Skin: No rash or skin lesions. Psychiatric: Cooperative. Non-suicidal Musculoskeletal: No joint swelling or deformity. Normal range of motion. - Labs CBC & Chem 7: 05/15/19 07:32 05/15/19 07:32 Labs: Abnormal Lab Results - Last 24 Hours (Table) 05/15/19 05/15/19 Range/Units 07:32 07:32 WBC 13.5 H (3.8-10.6) k/uL Plt Count 116 L (150-450) k/uL Sodium 135 L (137-145) mmol/L Potassium 3.4 L (3.5-5.1) mmol/L BUN 5 L (7-17) mg/dL Glucose 109 H (74-99) mg/dL Calcium 7.4 L (8.4-10.2) mg/dL ALT 175 H (4-34) U/L Total Protein 5.6 L (6.3-8.2) g/dL Albumin 2.8 L (3.5-5.0) g/dL Amylase 132 H (30-110) U/L Lipase 371 H (23-300) U/L Assessment and Plan Assessment: Acute gallstone pancreatitis possible choledocholithiasis with passage of stone. Status post laparoscopic cholecystectomy. Elevated liver enzymes. Trending down. Hyperbilirubinemia Recent diagnosis of gallstones Hiatal hernia Previous history of smoking DVT prophylaxis Morbid obesity with BMI 42.9 Hepatic steatosis Plan: Patient will be continued on IV hydration and IV pain medications. Currently on liquid diet. Follow-up liver enzymes. Liver enzymes and amylase, lipase are trending down. Patient is status post cholecystectomy but general surgery today. Started on clear liquid diet. Continue with pain management. Anticipate discharged to home. Further recommendations based on the clinical course. Time with Patient: Greater than 30
[2019-05-16] MEDS: SODIUM CHLORIDE 0.9% 1,000 ML IV SCH ×2 (03:24→07:59)
[2019-05-16] MEDS: HYDROmorphone 0.5 MG/0.5 ML SYRINGE IVP PRN (04:23)
[2019-05-16] MEDS: ONDANSETRON 4 MG/2 ML VIAL IVP SCH ×2 (05:06→11:13)
[2019-05-16] MEDS: HEPARIN SODIUM,PORCINE 5,000 UNIT/ML 1 ML VIAL SQ SCH (07:58)
[2019-05-16] MEDS: LACTATED RINGERS 1,000 ML IV SCH (07:59)
[2019-05-16] MEDS: buPROPion SR 150 MG TABLET.ER PO SCH (07:59)
[2019-05-16] MEDS: PANTOPRAZOLE 40 MG/10 ML VIAL IVP SCH (07:59)
[2019-05-16 08:05] LABS: Basophils % (A) 0 %; Eosinophils # (A) 0.2 k/uL (0-0.7); Eosinophils % (A) 2 %; HCT 33.3 % (34.0-46.0); HGB 10.8 gm/dL (11.4-16.0); Lymphocytes % (A) 11 %; MCH 29.3 pg (25.0-35.0); MCHC 32.4 g/dL (31.0-37.0); MCV 90.4 fL (80.0-100.0); Mean Platelet Volume 10.6; Monocytes # (A) 0.6 k/uL (0-1.0); Monocytes % (A) 7 %; Neutrophils # (A) 7.2 k/uL (1.3-7.7); Neutrophils % (A) 79 %; Platelet Count 121 k/uL (150-450); RBC 3.69 m/uL (3.80-5.40); RDW 13.4 % (11.5-15.5); WBC 9.2 k/uL (3.8-10.6)
[2019-05-16 08:08] LABS: African American GFR (CKD) >90 (>60 ml/min/1.73 sqM); Anion Gap 7 mmol/L; Blood Urea Nitrogen 3 mg/dL (7-17); Calcium 7.3 mg/dL (8.4-10.2); Carbon Dioxide 25 mmol/L (22-30); Chloride 105 mmol/L (98-107); Glucose 119 mg/dL (74-99); Non-African American GFR(CKD) >90 (>60 ml/min/1.73 sqM); Potassium 3.7 mmol/L (3.5-5.1); Sodium 137 mmol/L (137-145)
[2019-05-16] MEDS: MEROPENEM 2 GM in SODIUM CHLORIDE 0.9% 100 ML IVPB SCH (08:54)
[2019-05-16 10:43] LABS: ALT 136 U/L (4-34); AST 41 U/L (14-36); Albumin 2.4 g/dL (3.5-5.0); Alkaline Phosphatase 105 U/L (38-126); Total Bilirubin 0.4 mg/dL (0.2-1.3); Total Protein 4.9 g/dL (6.3-8.2)
--- NOTE | 2019-05-16 12:05 | P.PN ---
Subjective Patient is seen and examined resting comfortably laying flat in bed in no acute distress. She is postop day #1 for laparoscopic cholecystectomy. She denies abdominal pain, nausea or vomiting. She states she is passing gas. Blood pressure 124/70 heart rate 96 afebrile maintaining oxygen saturation on room air. Laboratory data reviewed, WBC 9.2, hemoglobin 10.8, platelets 121, sodium 137, potassium 3.7, creatinine 0.54, total bilirubin 0.4, AST 41, ALT 136. GENERAL: No acute distress. HEENT: Head is atraumatic, normocephalic. Pupils are equal, round. Sclerae anicteric. Conjunctivae are clear. Mucous membranes of the mouth are moist. Neck is supple. ABDOMEN: Soft, nontender. Bowel sounds are heard. No organomegaly noted. Incision sites clean, dry and intact. No erythema or oozing. NEUROLOGIC: Patient is awake, alert and oriented x3. ASSESSMENT Cholecystitis s/p laparoscopic cholecystectomy Gallstone pancreatitis PLAN Stable for discharge. Follow up in the office with Dr. Walters in 1-week. Nurse Practitioner note has been reviewed, I agree with a documented findings and plan of care. Patient was seen and examined. Objective - Vital Signs Vital signs: Vital Signs Temp 98.0 F 05/16/19 04:23 Pulse 96 05/16/19 04:23 Resp 22 05/16/19 04:23 BP 124/70 05/16/19 04:23 Pulse Ox 100 05/16/19 04:23 Intake & Output 05/15/19 05/16/19 05/16/19 18:59 06:59 18:59 Intake Total 1000 940 Output Total 5 Balance 995 940 Intake: IV 1000 Intake, IV Titration 360 Amount Meropenem 2 gm In Sodium 100 Chloride 0.9% 100 ml @ 200 mls/hr IVPB Q8HR MARCOS Rx#:[id number] Sodium Chloride 0.9% 1, 260 000 ml @ 130 mls/hr IV . Q7H42M MARCOS Rx#:[id number] Oral 580 Output: Estimated Blood Loss 5 Other: Voiding Method Toilet Toilet Toilet # Voids 3 3 1 # Bowel Movements 0 - Labs CBC & Chem 7: 05/16/19 06:34 05/16/19 06:34 Labs: Abnormal Lab Results - Last 24 Hours (Table) 05/16/19 05/16/19 Range/Units 06:34 06:34 RBC 3.69 L (3.80-5.40) m/uL Hgb 10.8 L (11.4-16.0) gm/dL Hct 33.3 L (34.0-46.0) % Plt Count 121 L (150-450) k/uL BUN 3 L (7-17) mg/dL Glucose 119 H (74-99) mg/dL Calcium 7.3 L (8.4-10.2) mg/dL AST 41 H (14-36) U/L ALT 136 H (4-34) U/L Total Protein 4.9 L (6.3-8.2) g/dL Albumin 2.4 L (3.5-5.0) g/dL Microbiology - Last 24 Hours (Table) 05/15/19 00:29 Blood Culture - Preliminary Blood No Growth after 24 hours
[2019-05-16 13:27] VITALS: BP 112/73; PULSE 91; RESP 20; TEMP 96.9
--- NOTE | 2019-05-16 20:07 | P.PN ---
Subjective Progress Note Date: 05/16/19 Principal diagnosis: Gallstone pancreatitis, status post cholecystectomy Patient is seen lying in bed reporting that abdominal pain is overall improved. Tolerating diet. No nausea or vomiting. Objective - Vital Signs Vital signs: Vital Signs Temp 98.0 F 05/16/19 04:23 Pulse 96 05/16/19 04:23 Resp 22 05/16/19 04:23 BP 124/70 05/16/19 04:23 Pulse Ox 100 05/16/19 04:23 Intake & Output 05/15/19 05/16/19 05/16/19 18:59 06:59 18:59 Intake Total 1000 940 Output Total 5 Balance 995 940 Intake: IV 1000 Intake, IV Titration 360 Amount Meropenem 2 gm In Sodium 100 Chloride 0.9% 100 ml @ 200 mls/hr IVPB Q8HR MARCOS Rx#:[id number] Sodium Chloride 0.9% 1, 260 000 ml @ 130 mls/hr IV . Q7H42M MARCOS Rx#:[id number] Oral 580 Output: Estimated Blood Loss 5 Other: Voiding Method Toilet Toilet Toilet # Voids 3 3 1 # Bowel Movements 0 - Exam On physical examination, patient appears comfortable in no apparent distress. HEAD: Normocephalic, atraumatic. EYES: No scleral icterus. No conjunctival injection. MOUTH: No lesions, tongue midline. NECK: Trachea midline, no gross abnormalities. ABDOMEN: Soft, appropriately tender. Bowel sounds are positive. No organomegaly. No guarding or rigidity. EXTREMITIES: No pedal edema. SKIN: No rashes, no jaundice. NEUROLOGIC: Alert and oriented x3. No focal deficits. - Labs CBC & Chem 7: 05/16/19 06:34 05/16/19 06:34 Labs: Abnormal Lab Results - Last 24 Hours (Table) 05/16/19 05/16/19 Range/Units 06:34 06:34 RBC 3.69 L (3.80-5.40) m/uL Hgb 10.8 L (11.4-16.0) gm/dL Hct 33.3 L (34.0-46.0) % Plt Count 121 L (150-450) k/uL BUN 3 L (7-17) mg/dL Glucose 119 H (74-99) mg/dL Calcium 7.3 L (8.4-10.2) mg/dL AST 41 H (14-36) U/L ALT 136 H (4-34) U/L Total Protein 4.9 L (6.3-8.2) g/dL Albumin 2.4 L (3.5-5.0) g/dL Microbiology - Last 24 Hours (Table) 05/15/19 00:29 Blood Culture - Preliminary Blood No Growth after 24 hours Assessment and Plan (1) Gallstone pancreatitis Narrative/Plan: 38-year-old female presented with gallstone pancreatitis status post cholecystectomy. The patient is doing well. Abdominal pain improves. Tolerating diet. Status: Acute Code(s): K85.10 - BILIARY ACUTE PANCREATITIS WITHOUT NECROSIS OR INFECTION SNOMED Code(s): 73358692 (2) Abdominal pain Status: Acute Code(s): R10.9 - UNSPECIFIED ABDOMINAL PAIN SNOMED Code(s): 57638629 Plan: Supportive care Okay for diet Continue postoperative care Okay for discharge when otherwise medically stable Thank you for allowing us to participate in the care of the patient
--- NOTE | 2019-05-17 12:38 | P.DS ---
Providers Date of admission: 05/12/19 11:12 Expected date of discharge: 05/16/19 Attending physician: Will Castañeda Consults: 05/12/19 11:12 Consult Physician Urgent Consulting Provider: Fatimah East Consult Reason/Comments: Hepatitis Do you want consulting provider notified?: Yes 05/12/19 13:48 Consult Physician Urgent Consulting Provider: Corey Walters Consult Reason/Comments: cholelithiasis, ruq pain Do you want consulting provider notified?: Yes Primary care physician: [facility] Course: Final Diagnosis Acute gallstone pancreatitis possible choledocholithiasis with passage of stone. Status post laparoscopic cholecystectomy. Elevated liver enzymes. Trending down. Hyperbilirubinemia Recent diagnosis of gallstones Hiatal hernia Previous history of smoking DVT prophylaxis Morbid obesity with BMI 42.9 Hepatic steatosis Discharge disposition Patient is being discharged in a stable condition to home. Patient will follow- up with GI as well as surgery in the outpatient setting in 1 week. Total time taken is 35 minutes. History of present illness This is a 38-year-old female who was recently admitted with epigastric abdominal pain and was being closely monitored. Patient had a CT of the abdomen showing gallstones at [place] and was transferred here to [facility] for further evaluation. Patient was seen and evaluated by surgery along with GI and was found to have acute pancreatitis along with cholelithiasis and acute cholecystitis. Patient underwent cholecystectomy on 05/15/2019 and amylase and lipase continue to improve. Patient will need to follow-up with surgery in the outpatient setting in 1 week. Patient's diet has been advanced to regular and tolerating with no reports of nausea or vomiting. Patient did not have a bowel movement but is passing gas. Patient would like to go home today. Currently no reports of chest pain, shortness of breath, or palpitations. No reports of nausea or vomiting and patient is tolerating diet. Currently patient's condition is stable and will be discharged today. On exam vital signs are stable. Temp is 96.9 F, pulse is 91, respirations are 20, blood pressure is 112/73, oxygen saturation is 95% on room air. Cardio S1, S2 are present. Respiratory sounds clear to auscultation. Abdomen is soft and nontender. Nervous system shows no focal deficits. Please refer to medication reconciliation sheet for a list of medications. Patient Condition at Discharge: Stable Plan - Discharge Summary Discharge Rx Participant: No New Discharge Prescriptions: New Pantoprazole Sodium [Protonix] 40 mg PO DAILY #30 tablet.dr Tatum buPROPion HCL [Wellbutrin SR] 150 mg PO Q12H HYDROcodone/APAP 5-325MG [[place] 5-325] 1 tab PO Q6H PRN PRN Reason: Pain Ondansetron Odt [Zofran ODT] 8 mg PO Q8HR PRN PRN Reason: Nausea Discharge Medication List HYDROcodone/APAP 5-325MG [[place] 5-325] 1 tab PO Q6H PRN 05/12/19 [History] Ondansetron Odt [Zofran ODT] 8 mg PO Q8HR PRN 05/12/19 [History] buPROPion HCL [Wellbutrin SR] 150 mg PO Q12H 05/12/19 [History] Pantoprazole Sodium [Protonix] 40 mg PO DAILY #30 tablet. 05/16/19 [Rx] Follow up Appointment(s)/Referral(s): Corey Walters MD [Medical Doctor] - 1 Week Mario Redmond MD [Primary Care Provider] - 1-2 days Rahul Stuart MD [STAFF PHYSICIAN] - 06/08/19 11:30 am Ambulatory/Diagnostic Orders: Comprehensive Metabolic Panel [LAB.AMB] Location: None Selected Comprehensive Metabolic Panel [LAB.AMB] Time Frame: 3 Days, Location: None Selected Patient Instructions/Handouts: Laparoscopic Cholecystectomy (DC) Activity/Diet/Wound Care/Special Instructions: Activity Limited until follow-up Follow-up with primary care provider upon discharge Follow-up with GI in the outpatient setting Follow-up with surgery in the outpatient setting Continue to advance diet slowly as tolerated Repeat labs this week No driving while taking narcotics. You may shower, no soaking or tub baths. No lifting greater than 10 pounds. Limited activity until follow-up with Dr. Walters. Discharge Disposition: HOME SELF-CARE
== END 2019-05-16 14:13 | disposition home or self-care (01) | DRG 418 ==
LOC: EC 09:46 → 6NMEDSUR 11:12
PROVIDERS: ADMIT Internal Medicine; ATTEND Internal Medicine
PROC: 0FT44ZZ Resection of Gallbladder, Percutaneous Endoscopic Approach (ICD-10-PCS; principal; 2019-05-15 07:15)
DX: K85.10 Biliary acute pancreatitis without necrosis or infection (principal); Z68.41 Body mass index [BMI] 40.0-44.9, adult; K80.62 Calculus of gallbladder and bile duct with acute cholecystitis without obstruction; E66.01 Morbid (severe) obesity due to excess calories; K44.9 Diaphragmatic hernia without obstruction or gangrene; K59.00 Constipation, unspecified; K76.0 Fatty (change of) liver, not elsewhere classified; F32.9 Major depressive disorder, single episode, unspecified; Z98.51 Tubal ligation status; Z87.891 Personal history of nicotine dependence; Z87.440 Personal history of urinary (tract) infections; Z98.42 Cataract extraction status, left eye; Z98.41 Cataract extraction status, right eye; Z82.49 Family history of ischemic heart disease and other diseases of the circulatory system; Z83.3 Family history of diabetes mellitus
CPT/HCPCS: 36415; 71045; 76705; 80053; 80074; 81001; 82150; 83690; 84703; 85025; 85027; 85610; 86308; 87040; 88304; 96361; 96374; 96375; 99285

== ENCOUNTER → 2019-05-20 | Outpatient (CLI) | payer BC ==
[2019-05-20 15:55] LABS: African American GFR (CKD) 141.3 (60.0-200.0); Albumin 3.4 g/dL (3.80-4.90); Albumin/Globulin Ratio 1.55 (1.60-3.17); Globulin 2.2 g/dL (1.6-3.3); Non-African American GFR(CKD) 121.9 (60.0-200.0); Total Bilirubin 0.4 mg/dL (0.3-1.2); Total Protein 5.6 g/dL (6.2-8.2)
== END | disposition home or self-care (01) ==
LOC: LABWHC1 08:47
PROVIDERS: ATTEND Surgery
DX: K85.90 Acute pancreatitis without necrosis or infection, unspecified (principal)
CPT/HCPCS: 36415; 80053

== ENCOUNTER → 2019-07-11 | Outpatient (CLI) | payer BC ==
--- NOTE | 2019-07-11 08:45 | XR ---
EXAMINATION TYPE: XR tibia fibula RT, XR ankle complete RT DATE OF EXAM: 07/11/2019 CLINICAL HISTORY: Rolling injury 3 months ago with persistent pain and swelling. TECHNIQUE: Two views of the right leg are obtained. 3 views right ankle. COMPARISON: None. FINDINGS: There is no acute fracture or dislocation seen in the right tibia or fibula. Right knee sharad int appears within normal limits. The overlying soft tissue appears unremarkable. Images of the right ankle show no acute fracture or dislocation. Ankle mortise symmetry is preserved. Small inferior calcaneal spur. Overlying soft tissue is unremarkable. IMPRESSION: As above.
== END | disposition home or self-care (01) ==
LOC: RADXRMAIN 08:20
PROVIDERS: ATTEND Pediatrics
DX: M77.31 Calcaneal spur, right foot (principal); M25.571 Pain in right ankle and joints of right foot

== ENCOUNTER 2019-08-24 13:37 | Emergency (ER) | payer BC ==
[2019-08-24 13:41] VITALS: PULSE 77; RESP 18; TEMP 98
[2019-08-24] MEDS ORDERED: ONDANSETRON 4 MG/2 ML VIAL IVP STA (14:02)
[2019-08-24] MEDS ORDERED: SODIUM CHLORIDE 0.9% 1,000 ML IV STA ×2 (14:02)
[2019-08-24] MEDS ORDERED: KETOROLAC 30 MG/ML 1 ML VIAL IVP STA (14:02)
[2019-08-24] MEDS ORDERED: PANTOPRAZOLE 40 MG/10 ML VIAL IVP STA (14:02)
--- NOTE | 2019-08-24 14:12 | ED ---
Recheck HPI - General Chief Complaint: Recheck/Abnormal Lab/Rx Stated Complaint: Abn Labs Time Seen by Provider: 08/24/19 13:51 Source: patient, RN notes reviewed, old records reviewed Mode of arrival: ambulatory Limitations: no limitations - History of Present Illness Initial Comments: Patient is a 39-year-old male who presents emergency department today for evaluation with complaints of abnormal lab values from labs were drawn by primary care doctor's office yesterday. Patient reports that she had her gallbladder removed [address] Walters. She reports that she started to have some pain similar to when she had her gallbladder attacks and called her PCP for evaluation. She had labs obtained which showed elevated liver and pancreas enzymes. - Related Data Home Medications Medication Instructions Recorded Confirmed Amoxicillin/Potassium Clav 1 tab PO Q12HR 08/24/19 08/24/19 [Augmentin 875-125 Tablet] Cyclobenzaprine [Flexeril] 5 mg PO TID PRN 08/24/19 08/24/19 Multivitamins, Thera [Multivitamin 1 tab PO DAILY 08/24/19 08/24/19 (formulary)] buPROPion XL [Wellbutrin Xl] 150 mg PO HS 08/24/19 08/24/19 busPIRone HCL 10 mg PO BID 08/24/19 08/24/19 Previous Rx's Medication Instructions Recorded Ondansetron Odt [Zofran Odt] 4 mg PO Q8HR PRN #12 tab 08/24/19 Allergies Allergy/AdvReac Type Severity Reaction Status Date / Time No Known Allergies Allergy Verified 08/24/19 14:05 Review of Systems ROS Statement: Those systems with pertinent positive or pertinent negative responses have been documented in the HPI. ROS Other: All systems not noted in ROS Statement are negative. Past Medical History Past Medical History: Eye Disorder Additional Past Medical History / Comment(s): Bronchitis, hiatal hernia, UTI, starting of cataracts bilaterally History of Any Multi-Drug Resistant Organisms: None Reported Past Surgical History: Section, Tubal Ligation Past Anesthesia/Blood Transfusion Reactions: No Reported Reaction Past Psychological History: Depression Smoking Status: Former smoker Past Alcohol Use History: None Reported Past Drug Use History: None Reported - Past Family History Father Family Medical History: Diabetes Mellitus, Hypertension Mother Family Medical History: Diabetes Mellitus, Hypertension General Exam - General Exam Comments Initial Comments: 39-year-old female. Alert and oriented. Limitations: no limitations General appearance: alert, in no apparent distress Head exam: Present: atraumatic, normocephalic, normal inspection Eye exam: Present: normal appearance, PERRL, EOMI. Absent: scleral icterus, conjunctival injection, periorbital swelling ENT exam: Present: normal exam, mucous membranes moist Neck exam: Present: normal inspection. Absent: tenderness, meningismus, lymphadenopathy Respiratory exam: Present: normal lung sounds bilaterally. Absent: respiratory distress, wheezes, rales, rhonchi, stridor Cardiovascular Exam: Present: regular rate, normal rhythm, normal heart sounds. Absent: systolic murmur, diastolic murmur, rubs, gallop, clicks GI/Abdominal exam: Present: soft, normal bowel sounds. Absent: distended, tenderness, guarding, rebound, rigid Extremities exam: Present: normal inspection, full ROM, normal capillary refill. Absent: tenderness, pedal edema, joint swelling, calf tenderness Back exam: Present: normal inspection Neurological exam: Present: alert, oriented X3, CN II-XII intact Psychiatric exam: Present: normal affect, normal mood Skin exam: Present: warm, dry, intact, normal color Course Vital Signs 08/24/19 08/24/19 13:38 14:42 Temperature 98.0 F Pulse Rate 77 77 Respiratory 18 18 Rate Blood Pressure 136/77 146/95 O2 Sat by Pulse 98 98 Oximetry Medical Decision Making - Medical Decision Making Patient's 39-year-old female presents today for concerns for abnormal lab tests that she had some right upper quadrant abdominal pain this week. She was told should elevated liver enzymes and was told to come to the emergency department. States she has no significant pain. Labs are reviewed. Mildly elevated transaminases with AST at 331. Bilirubin is normal. Normal pancreas enzymes. She denies being a drinker. At this time patient's advised to follow-up with her primary care doctor but will add acute hepatitis panels and mono test on her lab work today. She has no pain at this time. I discussed the pain were to recur she can return to the ER for reevaluation. Discussed repeat liver enzyme testing with PCP. - Lab Data Result diagrams: 08/24/19 14:13 08/24/19 14:13 Lab Results 08/24/19 08/24/19 08/24/19 Range/Units 14:13 14:13 14:13 WBC 5.9 (3.8-10.6) k/uL RBC 4.15 (3.80-5.40) m/uL Hgb 12.1 (11.4-16.0) gm/dL Hct 37.5 (34.0-46.0) % MCV 90.2 (80.0-100.0) fL MCH 29.1 (25.0-35.0) pg MCHC 32.3 (31.0-37.0) g/dL RDW 13.6 (11.5-15.5) % Plt Count 169 (150-450) k/uL Neutrophils % 66 % Lymphocytes % 25 % Monocytes % 4 % Eosinophils % 4 % Basophils % 1 % Neutrophils # 3.9 (1.3-7.7) k/uL Lymphocytes # 1.5 (1.0-4.8) k/uL Monocytes # 0.2 (0-1.0) k/uL Eosinophils # 0.2 (0-0.7) k/uL Basophils # 0.1 (0-0.2) k/uL PT 9.5 (9.0-12.0) sec INR 0.9 (<1.2) APTT 23.6 (22.0-30.0) sec Sodium 138 (137-145) mmol/L Potassium 3.9 (3.5-5.1) mmol/L Chloride 107 (98-107) mmol/L Carbon Dioxide 22 (22-30) mmol/L Anion Gap 9 mmol/L BUN 12 (7-17) mg/dL Creatinine 0.72 (0.52-1.04) mg/dL Est GFR (CKD-EPI)AfAm >90 (>60 ml/min/1.73 sqM) Est GFR (CKD-EPI)NonAf >90 (>60 ml/min/1.73 sqM) Glucose 164 H (74-99) mg/dL Calcium 9.1 (8.4-10.2) mg/dL Total Bilirubin 0.4 (0.2-1.3) mg/dL AST 83 H (14-36) U/L ALT 331 H (4-34) U/L Alkaline Phosphatase 95 (38-126) U/L Total Protein 6.7 (6.3-8.2) g/dL Albumin 3.9 (3.5-5.0) g/dL Amylase 35 (30-110) U/L Lipase 115 (23-300) U/L Urine Color Urine Appearance (Clear) Urine pH (5.0-8.0) Ur Specific [place] (1.001-1.035) Urine Protein (Negative) Urine Glucose (UA) (Negative) Urine Ketones (Negative) Urine Blood (Negative) Urine Nitrite (Negative) Urine Bilirubin (Negative) Urine Urobilinogen (<2.0) mg/dL Ur Leukocyte Esterase (Negative) Urine RBC (0-5) /hpf Urine WBC (0-5) /hpf Ur Squamous Epith Cells (0-4) /hpf Amorphous Sediment (None) /hpf Urine Bacteria (None) /hpf Urine Mucus (None) /hpf 07/15/20 Range/Units 15:03 WBC (3.8-10.6) k/uL RBC (3.80-5.40) m/uL Hgb (11.4-16.0) gm/dL Hct (34.0-46.0) % MCV (80.0-100.0) fL MCH (25.0-35.0) pg MCHC (31.0-37.0) g/dL RDW (11.5-15.5) % Plt Count (150-450) k/uL Neutrophils % % Lymphocytes % % Monocytes % % Eosinophils % % Basophils % % Neutrophils # (1.3-7.7) k/uL Lymphocytes # (1.0-4.8) k/uL Monocytes # (0-1.0) k/uL Eosinophils # (0-0.7) k/uL Basophils # (0-0.2) k/uL PT (9.0-12.0) sec INR (<1.2) APTT (22.0-30.0) sec Sodium (137-145) mmol/L Potassium (3.5-5.1) mmol/L Chloride (98-107) mmol/L Carbon Dioxide (22-30) mmol/L Anion Gap mmol/L BUN (7-17) mg/dL Creatinine (0.52-1.04) mg/dL Est GFR (CKD-EPI)AfAm (>60 ml/min/1.73 sqM) Est GFR (CKD-EPI)NonAf (>60 ml/min/1.73 sqM) Glucose (74-99) mg/dL Calcium (8.4-10.2) mg/dL Total Bilirubin (0.2-1.3) mg/dL AST (14-36) U/L ALT (4-34) U/L Alkaline Phosphatase (38-126) U/L Total Protein (6.3-8.2) g/dL Albumin (3.5-5.0) g/dL Amylase (30-110) U/L Lipase (23-300) U/L Urine Color Yellow Urine Appearance Cloudy H (Clear) Urine pH 5.5 (5.0-8.0) Ur Specific [place] 1.025 (1.001-1.035) Urine Protein Trace H (Negative) Urine Glucose (UA) Negative (Negative) Urine Ketones Trace H (Negative) Urine Blood Large H (Negative) Urine Nitrite Negative (Negative) Urine Bilirubin Negative (Negative) Urine Urobilinogen 2.0 (<2.0) mg/dL Ur Leukocyte Esterase Small H (Negative) Urine RBC >182 H (0-5) /hpf Urine WBC 9 H (0-5) /hpf Ur Squamous Epith Cells 7 H (0-4) /hpf Amorphous Sediment Rare H (None) /hpf Urine Bacteria Rare H (None) /hpf Urine Mucus Few H (None) /hpf Disposition Clinical Impression: Elevated liver function tests Disposition: HOME SELF-CARE Condition: Good Instructions (If sedation given, give patient instructions): Non-Alcoholic Fatty Liver Disease (ED) Additional Instructions: Please use medication as discussed. Please follow up with family doctor for repeat labs in 1 week. Have a bland low fat diet. Please return to the emergency room if your symptoms increase or worsen or for any other concerns. Prescriptions: Ondansetron Odt [Zofran Odt] 4 mg PO Q8HR PRN #12 tab PRN Reason: Nausea Is patient prescribed a controlled substance at d/c from ED?: No Referrals: Mario Redmond MD [Primary Care Provider] - 1-2 days Time of Disposition: 15:41
[2019-08-24 14:22] LABS: Basophils # (A) 0.1 k/uL (0-0.2); Basophils % (A) 1 %; Eosinophils # (A) 0.2 k/uL (0-0.7); Eosinophils % (A) 4 %; HCT 37.5 % (34.0-46.0); HGB 12.1 gm/dL (11.4-16.0); Lymphocytes # (A) 1.5 k/uL (1.0-4.8); Lymphocytes % (A) 25 %; MCH 29.1 pg (25.0-35.0); MCHC 32.3 g/dL (31.0-37.0); MCV 90.2 fL (80.0-100.0); Mean Platelet Volume 9.8; Monocytes # (A) 0.2 k/uL (0-1.0); Monocytes % (A) 4 %; Neutrophils # (A) 3.9 k/uL (1.3-7.7); Neutrophils % (A) 66 %; Platelet Count 169 k/uL (150-450); RBC 4.15 m/uL (3.80-5.40); RDW 13.6 % (11.5-15.5); WBC 5.9 k/uL (3.8-10.6)
[2019-08-24 14:31] LABS: INR 0.9 (<1.2); Partial Thromboplastin Time 23.6 sec (22.0-30.0); Prothrombin Time 9.5 sec (9.0-12.0)
[2019-08-24 14:32] LABS: ALT 331 U/L (4-34); AST 83 U/L (14-36); African American GFR (CKD) >90 (>60 ml/min/1.73 sqM); Albumin 3.9 g/dL (3.5-5.0); Alkaline Phosphatase 95 U/L (38-126); Amylase 35 U/L (30-110); Anion Gap 9 mmol/L; Blood Urea Nitrogen 12 mg/dL (7-17); Calcium 9.1 mg/dL (8.4-10.2); Carbon Dioxide 22 mmol/L (22-30); Chloride 107 mmol/L (98-107); Glucose 164 mg/dL (74-99); Non-African American GFR(CKD) >90 (>60 ml/min/1.73 sqM); Potassium 3.9 mmol/L (3.5-5.1); Sodium 138 mmol/L (137-145); Total Bilirubin 0.4 mg/dL (0.2-1.3); Total Protein 6.7 g/dL (6.3-8.2)
[2019-08-24 14:43] VITALS: BP 146/95
[2019-08-24 15:45] LABS: Amorphous Sediment,Urine Rare /hpf; Appearance,Urine Cloudy (Clear); Bacteria,Urine Rare /hpf; Bilirubin,Urine Negative (Negative); Blood,Urine Large (Negative); Color,Urine Yellow; Glucose,Urine (UA) Negative (Negative); Ketones,Urine Trace (Negative); Leukocyte Esterase,Urine Small (Negative); Mucus,Urine Few /hpf; Nitrite,Urine Negative (Negative); PH, Urine 5.5 (5.0-8.0); Protein,Urine Trace (Negative); RBC,Urine >182 /hpf (0-5); Specific Gravity,Urine 1.025 (1.001-1.035); Squamous Epithelial Cell,Urine 7 /hpf (0-4); WBC,Urine 9 /hpf (0-5)
[2019-08-24 16:50] LABS: Hepatitis A Antibody IgM NEGATIVE
[2019-08-25 00:30] LABS: Hepatitis B Core IgM Non-Reactive (Non-Reactive); Hepatitis B Surface Antigen Non-Reactive (Non-Reactive); Hepatitis C IgG Antibody Non-Reactive (Non-Reactive)
== END 2019-08-24 16:08 | disposition home or self-care (01) ==
LOC: EC 13:37
DX: R94.5 Abnormal results of liver function studies (principal); R74.0 Nonspecific elevation of levels of transaminase and lactic acid dehydrogenase [LDH]; F32.9 Major depressive disorder, single episode, unspecified; Z79.899 Other long term (current) drug therapy; Z87.891 Personal history of nicotine dependence
CPT/HCPCS: 36415; 80053; 80074; 82150; 83690; 85025; 85610; 85730; 86308; 81001; 99284; 96374; 96375 ×2; 96361; J2405; J1885; C9113

== ENCOUNTER → 2019-09-16 | Outpatient (CLI) | payer BC ==
[2019-09-16 12:29] LABS: Basophils # (A) 0.1 k/uL (0-0.2); Basophils % (A) 1 %; Eosinophils # (A) 0.2 k/uL (0-0.7); Eosinophils % (A) 4 %; HCT 40.2 % (34.0-46.0); HGB 12.7 gm/dL (11.4-16.0); Lymphocytes # (A) 1.7 k/uL (1.0-4.8); Lymphocytes % (A) 30 %; MCH 28.2 pg (25.0-35.0); MCHC 31.5 g/dL (31.0-37.0); MCV 89.5 fL (80.0-100.0); Mean Platelet Volume 9.4; Monocytes # (A) 0.2 k/uL (0-1.0); Monocytes % (A) 4 %; Neutrophils # (A) 3.5 k/uL (1.3-7.7); Neutrophils % (A) 61 %; Platelet Count 215 k/uL (150-450); RBC 4.49 m/uL (3.80-5.40); RDW 13.2 % (11.5-15.5); WBC 5.8 k/uL (3.8-10.6)
[2019-09-16 18:55] LABS: % Iron Saturation 12.44 (12.00-45.00); African American GFR (CKD) 106.9 (60.0-200.0); Albumin 4.5 g/dL (3.80-4.90); Albumin/Globulin Ratio 1.8 (1.60-3.17); BUN/Creat Ratio 13.75 Ratio (12.00-20.00); Calcium 9.3 mg/dL (8.7-10.3); Globulin 2.5 g/dL (1.6-3.3); Non-African American GFR(CKD) 92.2 (60.0-200.0); Potassium 4.3 mmol/L (3.5-5.5); Total Bilirubin 0.2 mg/dL (0.3-1.2)
[2019-09-16 19:09] LABS: Ferritin 10.5 ng/mL (10.0-291.0)
[2019-09-16 21:06] LABS: Gliadin AB IgA, Deaminated NEGATIVE (NEGATIVE); Gliadin AB IgA, Unit 11.3 U/mL; Gliadin AB IgG, Deaminated NEGATIVE (NEGATIVE)
[2019-09-16 21:20] LABS: Protein, Total 7.2 g/dL (6.2-8.2)
[2019-09-17 13:42] LABS: Ceruloplasmin 30.6 mg/dL (20.0-60.0)
== END | disposition home or self-care (01) ==
LOC: LABWHC1 11:02
PROVIDERS: ATTEND Internal Medicine
DX: R74.8 Abnormal levels of other serum enzymes (principal)
CPT/HCPCS: 36415; 80053; 82103; 82390; 82728; 83516; 83540; 83550; 84165; 85025; 86038; 86376

== ENCOUNTER → 2019-10-12 | Outpatient (CLI) | payer BC ==
--- NOTE | 2019-10-13 16:36 | MR ---
EXAMINATION TYPE: MR abdomen wo con DATE OF EXAM: 10/12/2019 COMPARISON: Correlation ultrasound 05/12/2019 HISTORY: 39-year-old female Biliary Acute Pancreatitis TECHNIQUE: Multiplanar, multisequence images of the abdomen were obtained without IV contrast. FINDINGS: The heart is normal size. No pleural effusion. Liver is enlarged at 20.5 cm. Opposed phase T1-weighted sequences show marked loss of parenchymal sig nal on the out of phase sequence. No suspicious T2-weighted liver lesion. Cholecystectomy clips. The bile duct shows normal caliber at 4 mm. No suspicious filling defect is identified. Noncontrast appearance of the adrenal glands, and kidneys appear within normal limits. Spleen is enlarged on axial series measuring 15.0 cm. No dilatation of the main pancreatic duct. No focal T2-weighted pancreatic lesion is seen. No abnorma l edema or surrounding inflammation of the pancreas. Prominent but nonenlarged 1.3 cm portacaval lymph node. No upper abdominal ascites, lymphadenopathy, or gross bowel abnormality is seen. IMPRESSION: 1. Hepatomegaly (20.5 cm) with severe hepatic steatosis. Correlate with LFTs, lipid profile, and magalie ent risk factors. 2. Status post cholecystectomy. No biliary ductal dilatation. 3. Splenomegaly at 15.0 cm on axial series. 4. No specific abnormality of the pancreas by MRI.
== END | disposition home or self-care (01) ==
LOC: RADMRIMAIN 15:18
PROVIDERS: ATTEND Internal Medicine
DX: K76.0 Fatty (change of) liver, not elsewhere classified (principal); R16.2 Hepatomegaly with splenomegaly, not elsewhere classified; Z90.49 Acquired absence of other specified parts of digestive tract
CPT/HCPCS: 74181

== ENCOUNTER → 2019-12-19 | Outpatient (CLI) | payer BC ==
--- NOTE | 2019-12-19 15:38 | US ---
EXAMINATION TYPE: US pelvis complete transvag DATE OF EXAM: 12/19/2019 COMPARISON: NONE CLINICAL HISTORY: N93.9 Abnormal uterine and vaginal bleeding. Irregular cycles, 3, para 3, h istory of 3 c-sections and tubal ligation. TECHNIQUE: . Transabdominal sonographic images of the pelvis were acquired. Transvaginal sonographi c images were medically necessary to better assess the following anatomy: ovaries Date of LMP: 11/28/2019 EXAM MEASUREMENTS: Uterus: 11.1 x 4.9 x 5.5 cm Endometrial Stripe: 1.5 cm Right Ovary: not seen Left Ovary: not seen 1. Uterus: anteverted, mildly enlarged, heterogeneous 2. Endometrium: mildly thickened, small amount of fluid in endocervical canal 3. Right Ovary: not seen due to overlying bowel gas 4. Left Ovary: not seen due to overlying bowel gas 5. Bilateral Adnexa: wnl 6. Posterior cul-de-sac: small amount of free fluid IMPRESSION: Fluid within the endocervical canal. Uterine myometrium is mildly heterogenous.
== END | disposition home or self-care (01) ==
LOC: RADUSWWP 14:52
PROVIDERS: ATTEND Obstetrics & Gynecology
DX: N85.9 Noninflammatory disorder of uterus, unspecified (principal); N93.9 Abnormal uterine and vaginal bleeding, unspecified
CPT/HCPCS: 76830; 76856

== ENCOUNTER → 2020-03-19 | Outpatient (CLI) | payer BC ==
--- NOTE | 2020-03-20 11:20 | MM ---
Reason for exam: screening (asymptomatic). Last mammogram was performed 1 year ago. History: Family history of breast cancer in maternal grandmother at age 57, breast cancer in aunt at age 53, and breast cancer in maternal aunt at age 58. Physical Findings: A clinical breast exam by your physician is recommended on an annual basis and results should be correlated with mammographic findings. MG 3D Screening Mammo W/Cad Bilateral CC and MLO view(s) were taken. Prior study comparison: March 16, 2019, left breast MG 3d work up w/cad LT. March 16, 2019, bilateral MG 3d screening mammo w/cad. There are scattered fibroglandular densities. There is no discrete abnormality. ASSESSMENT: Negative, BI-RAD 1 RECOMMENDATION: Routine screening mammogram of both breasts in 1 year.
== END | disposition home or self-care (01) ==
LOC: RADMAMWWP 07:21
PROVIDERS: ATTEND Obstetrics & Gynecology
DX: Z12.31 Encounter for screening mammogram for malignant neoplasm of breast (principal)
CPT/HCPCS: 77063; 77067

== ENCOUNTER → 2021-03-29 | Outpatient (CLI) | payer BC ==
--- NOTE | 2021-04-02 08:49 | MM ---
Reason for exam: screening (asymptomatic). Last mammogram was performed 1 year ago. History: Family history of breast cancer in maternal grandmother at age 57, breast cancer in aunt at age 53, and breast cancer in maternal aunt at age 58. Physical Findings: A clinical breast exam by your physician is recommended on an annual basis and results should be correlated with mammographic findings. MG 3D Screening Mammo W/Cad Bilateral CC and MLO view(s) were taken. XCCL view(s) were taken of the left breast. Prior study comparison: March 19, 2020, bilateral MG 3d screening mammo w/cad. March 16, 2019, left breast MG 3d work up w/cad LT. There are scattered fibroglandular densities. No significant changes when compared with prior studies. ASSESSMENT: Benign, BI-RAD 2 RECOMMENDATION: Routine screening mammogram of both breasts in 1 year.
== END | disposition home or self-care (01) ==
LOC: RADMAMWWP 08:04
PROVIDERS: ATTEND Obstetrics & Gynecology
DX: Z12.31 Encounter for screening mammogram for malignant neoplasm of breast (principal); Z80.3 Family history of malignant neoplasm of breast
CPT/HCPCS: 77063; 77067

== ENCOUNTER → 2021-09-17 | Outpatient (CLI) | payer BC ==
--- NOTE | 2021-09-17 08:02 | US ---
EXAMINATION TYPE: US mass soft tissue chest/back DATE OF EXAM: 09/17/2021 COMPARISON: NONE CLINICAL HISTORY: R22.9 soft tissue swelling. Visible and palpable lump mid upper back. Patient stat es it has been there for a very long time. Lump feels soft. Area of concern scanned. Superficial nonvascular lesion seen = 6.6 x 5.7 x 2.2 cm. IMPRESSION: Nonspecific mass could reflect a lipoma.
== END | disposition home or self-care (01) ==
LOC: RADUSWWP 06:40
PROVIDERS: ATTEND Pediatrics
DX: R22.9 Localized swelling, mass and lump, unspecified (principal)

== ENCOUNTER → 2022-09-26 | Outpatient (CLI) | payer BC ==
--- NOTE | 2022-09-26 10:00 | XR ---
EXAMINATION TYPE: XR knee complete bilateral DATE OF EXAM: 09/26/2022 COMPARISON: None HISTORY: Bilateral knee pain and edema TECHNIQUE: Bilateral knees 3 views each FINDINGS: No acute fractures or dislocations are evident. Minimal degenerative change may be in the m edial compartment left knee. Right knee appears normal. Minimal right joint effusion is not excluded. Significant joint effusion is not identified on the lef t. IMPRESSION: 1. Minimal degenerative change medial compartment left knee. 2. Minimal right joint effusion not excluded. 3. MRI can be performed as clinically indicated.
== END | disposition home or self-care (01) ==
LOC: RADXRMAIN 08:48
PROVIDERS: ATTEND Nurse Practitioner Family
DX: S89.91XA Unspecified injury of right lower leg, initial encounter (principal)

== ENCOUNTER → 2022-10-01 | Outpatient (CLI) | payer BC ==
--- NOTE | 2022-10-01 22:55 | US ---
EXAMINATION TYPE: US liver DATE OF EXAM: 10/01/2022 COMPARISON: 05/12/2019 US GB, 10/12/2019 MR Abd CLINICAL INDICATION: Female, 42 years old with history of K76.0 FATTY (CHANGE OF) LIVER, NOT ELSEWHER E CLASS; hx cholecystectomy, fatty liver TECHNIQUE: Multiple sonographic images of the right upper quadrant are obtained. 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 Hepatomegaly with mild fatty infiltration the liver.
== END | disposition home or self-care (01) ==
LOC: RADUSWWP 08:36
PROVIDERS: ATTEND Family Medicine
DX: K76.0 Fatty (change of) liver, not elsewhere classified (principal); R16.0 Hepatomegaly, not elsewhere classified
CPT/HCPCS: 76705

== ENCOUNTER 2023-08-10 07:21 | Day surgery (SDC) | payer BC, OTHER ==
[~2023-08-10 07:21] MED LIST: HEPARIN SODIUM,PORCINE 5,000 UNIT/ML 1 ML VIAL SQ PRN
[2023-08-10] MEDS: IV FLUID CONTINUATION 1,000 ML IV ONE (07:39)
[2023-08-10] MEDS: LACTATED RINGERS 1,000 ML IV SCH (08:09)
[2023-08-10] MEDS: ACETAMINOPHEN TAB 500 MG TAB PO PRN (08:10)
[2023-08-10] MEDS: DEXAMETHASONE SOD PHOSPHATE 4 MG/ML 1 ML VIAL IVP STA (08:12)
[2023-08-10] MEDS: ONDANSETRON 4 MG/2 ML VIAL IVP STA (08:12)
[2023-08-10] MEDS ORDERED: PROPOFOL 10 MG/ML 20 ML VIAL IV ONE (08:43)
[2023-08-10] MEDS ORDERED: MIDAZOLAM 2 MG/2 ML VIAL ONE (08:43)
[2023-08-10] MEDS ORDERED: fentaNYL (PF) 50 MCG/ML 2 ML AMP ONE (08:43)
[2023-08-10] MEDS ORDERED: LIDOCAINE 1% INJ 10MG/ML (20 ML MDV) ONE (08:43)
[2023-08-10] MEDS ORDERED: KETOROLAC 15 MG/ML 1 ML VIAL ONE (08:43)
[2023-08-10] MEDS: BUPIVACAINE (PF) 0.25% 30 ML VIAL SQ ONE ×2 (09:05→09:36)
[2023-08-10] MEDS ORDERED: NALOXONE 0.4 MG/ML 1 ML VIAL IV PRN (09:36)
[2023-08-10] MEDS ORDERED: ACETAMINOPHEN TAB 325 MG TAB PO PRN (09:36)
[2023-08-10] MEDS ORDERED: HYDROcodone/APAP 5-325MG 1 EACH TAB PO PRN (09:36)
--- NOTE | 2023-08-10 09:40 | P.OP ---
Date of Procedure: 08/10/23 Procedure(s) Performed: PREOPERATIVE DIAGNOSIS: Right back lipoma, nevi x 2 POSTOPERATIVE DIAGNOSIS: Same PROCEDURE: Excision right back lipoma, excision nevi x 2 SURGEON: Romeo EBL: 5 cc ANESTHESIA: General COMPLICATIONS: None OPERATIVE PROCEDURE: Patient placed in the left cubitus position. The patient's right upper back prepped and draped sterilely. Longitudinal vertical incision made overlying the palpable mass. Dissection through the subcutaneous tissues took place using electrocautery. The large lipomatous mass was excised and sent to pathology for close examination. This measured 8 x 9 cm x 4 cm. Subcutaneous tissues inspected. No bleeding seen. Subcutaneous layer closed using interrupted 3-0 Vicryl sutures. Skin closed using a running 4-0 Monocryl stitch. Skin glue and sterile gauze was applied. The patient had 2 pigmented nevi 1 inferiorly and 1 superiorly. Both measured about 6 to 7 mm in size. Both removed sharply. Small areas of oozing from the base of the pedunculated nevus controlled using spot cautery. Dressings applied with bacitracin. DISPOSITION: Stable to recovery room
[2023-08-10 09:55] VITALS: RESP 16; TEMP 97.6
[2023-08-10 10:45] VITALS: BP 124/84; PULSE 63
== END 2023-08-10 11:04 | disposition home or self-care (01) ==
LOC: OR 07:21
PROVIDERS: ATTEND Surgery
DX: D17.1 Benign lipomatous neoplasm of skin and subcutaneous tissue of trunk (principal); D22.5 Melanocytic nevi of trunk; E66.01 Morbid (severe) obesity due to excess calories; Z68.41 Body mass index [BMI] 40.0-44.9, adult; F90.9 Attention-deficit hyperactivity disorder, unspecified type; F32.A Depression, unspecified; Z87.891 Personal history of nicotine dependence; Z79.899 Other long term (current) drug therapy
CPT/HCPCS: 88304; 88305; 21931; 11400; J2250; J1100; J0690; J2405; J2001; J3010; J1885; J2704; J0665

== ENCOUNTER → 2023-08-26 | Outpatient (CLI) | payer OTHER ==
--- NOTE | 2023-08-30 15:35 | MM ---
Reason for Exam: Screening (asymptomatic). Last mammogram was performed 2 year(s) and 5 month(s) ago. Patient History: Menarche at age 13. First Full-Term at age 25. Hysterectomy at age 38. Patient has history of breast feeding. Maternal grandmother had breast cancer, age 57. Maternal aunt had breast cancer, age 53. Maternal aunt had breast cancer, age 58. Risk Values: Sera 5 year model risk: 0.8%. NCI Lifetime model risk: 9.8%. Prior Study Comparison: 03/16/2019 Left Diagnostic Mammogram, [facility]. 03/19/2020 Bilateral Screening Mammogram, [facility]. 03/29/2021 Bilateral Screening Mammogram, [facility]. Tissue Density: There are scattered areas of fibroglandular density. Findings: Analyzed By CAD. The pattern is symmetrical. No significant interval change No suspicious groups of microcalcifications, spiculated or lobular masses, architectural distortion or other secondary signs of malignancy are mammographically apparent. Overall Assessment: Benign, BI-RAD 2 Management: Screening Mammogram of both breasts in 1 year. A negative mammogram report should not preclude additional follow up of suspicious palpable abnormalities. Patient should continue monthly self breast exam. A clinical breast exam by your physician is recommended on an annual basis and results should be correlated with mammographic findings. Note on Sera scores and lifetime risk: 1. A Sera score greater than 3% is considered moderate risk. If this is the case, consider specialist referral to assess eligibility for a risk reducing agent. 2. If overall lifetime risk for the development of breast cancer is 20% or higher, the patient may qualify for future screening with alternating mammogram and breast MRI. Electronically signed and approved by: Tom Kingsley D.O. Radiologis
== END | disposition home or self-care (01) ==
LOC: RADMAMWWP 08:34
PROVIDERS: ATTEND Family Medicine
DX: Z12.31 Encounter for screening mammogram for malignant neoplasm of breast (principal); R92.323 Mammographic fibroglandular density, bilateral breasts; Z80.3 Family history of malignant neoplasm of breast
CPT/HCPCS: 77063; 77067